=== PATIENT | female | born 1940 | race Caucasian/White ===

== ENCOUNTER 2017-09-23 16:12 | Emergency (ER) | payer BC, OTHER ==
--- NOTE | 2017-09-23 16:37 | EDPHY ---
H & P Time Seen by Provider: 09/23/17 16:24 HPI/ROS: CHIEF COMPLAINT: Left eye is bleeding HISTORY OF PRESENT ILLNESS: Patient had cataract surgery last year in December and then redness surgery in January. Repair of the retina by last week on . Was prescribed eyedrops and then had some left eye irritation and was prescribed prednisolone eye drops by analysis consultant Dr. Soler and saw DrRoland in the office yesterday. Was told to continue the eyedrops. Today had worsening eye irritation and itching and then states she feels like it is bleeding into her throat. Over the last 3 hr she coughed about once an hour and had a little speck of blood each time. REVIEW OF SYSTEMS: Eye: As in HPI ENT: no nose bleeding Cardiac: No chest pain Pulmonary: HPI not short of breath Abdomen: no vomiting, diarrhea, abdominal pain Musculoskeletal: No leg swelling Skin: no bruising Neuro: no headache Constitutional: no fever : no hematuria A comprehensive 10 point review of systems is otherwise negative aside from elements mentioned in the history of present illness. PAST MEDICAL HISTORY: Eye surgery, hypertension, hypothyroid. Social history: Here with her spouse General Appearance: Alert and conversant, cooperative. Eyes: Lateral left subconjunctival hemorrhage, lower lid is erythematous and edematous. Extraocular motion intact and pupils equal and reactive. ENT, Mouth: Normal mucous membranes. No blood in the pharynx, no trismus, no stridor or drooling. Respiratory: Normal respiratory effort, breath sounds equal, lungs are clear to auscultation. Cardiovascular: Regular rate and rhythm. Gastrointestinal: Abdomen is soft and non tender. Neurological: Alert, conversant, ambulatory. Skin: No bruising or petechiae, left lower eyelid as noted above. Musculoskeletal: No peripheral edema. Psychiatric: Not agitated. Emergency Department course/MDM: Call is placed to her music arranger. Discussed with Sharon at 1658. Normal to have bloody tears, she feels the patient's symptoms would be expected following surgery and no further action is required. Continue eyedrops as prescribed by Dr. Soler.. Patient is coughing up likely bloody tears, and I do not think it is likely that she has acute pulmonary infection or pulmonary infarction or embolus, or other ENT bleeding. Smoking Status: Never smoked Constitutional: Initial Vital Signs Temperature (C) 36.6 C 09/23/17 16:20 Heart Rate 82 09/23/17 16:20 Respiratory Rate 16 09/23/17 16:20 Blood Pressure 129/75 H 09/23/17 16:20 O2 Sat (%) 92 09/23/17 16:20 O2 Delivery Mode Room Air Allergies/Adverse Reactions: lanolin Allergy (Severe, Verified 02/08/13 13:57) Rash bacitracin Allergy (Verified 08/03/12 18:13) codeine [Codeine] Allergy (Verified 08/03/12 18:11) neomycin Allergy (Verified 09/23/17 16:19) polymyxin B Allergy (Verified 09/23/17 16:19) ADHESIVES Allergy (Uncoded 08/03/12 18:12) Departure - Departure Disposition: Home, Routine, Self-Care Clinical Impression: Subconjunctival hemorrhage of left eye Condition: Good Instructions: Subconjunctival Hemorrhage (ED) Additional Instructions: Per Dr. Herrera it is normal to have bloody tears after this surgery for a few more days. Referrals: Lyn Carvajal MD [Primary Care Provider] - As per Instructions Cassie Herrera MD [Non Staff Provider (MD)] - As per Instructions
[2017-09-23 17:49] VITALS: BP 106/70
== END 2017-09-23 17:49 | disposition home or self-care (01) ==
DX: H11.32 Conjunctival hemorrhage, left eye (principal); I10 Essential (primary) hypertension

== ENCOUNTER → 2017-12-26 | Outpatient (CLI) | payer BC | LOC: FIMAGING 12:00 | PROVIDERS: ATTEND Family Medicine | DX: N63.20 Unspecified lump in the left breast, unspecified quadrant (principal) ==

== ENCOUNTER → 2017-12-26 | Outpatient (CLI) | payer BC ==
--- NOTE | 2017-12-29 11:07 | CPEEG ---
[f rep st] ELECTROENCEPHALOGRAM DATE OF STUDY: 12/26/2017 INTERPRETATION: Normal EEG during wakefulness and drowsiness. There were no potentially epileptogen ic abnormalities present during the recording. REPORT: This EEG contains 8-9 hertz, low amplitude alpha activity over the posterior head regions. There was no abnormal activation at rest, during photic stimulation or hyperventilation. The patient became intermittently drowsy during the study. There was no abnormal activation during drowsiness o r during times of arousal. /[id number]/MODL
== END ==
LOC: FCPNEURO 07:54
PROVIDERS: ATTEND Physician Assistant Medical
DX: R41.3 Other amnesia (principal)

== ENCOUNTER → 2018-01-21 | Outpatient (CLI) | payer BC ==
[~2018-01-21] MED LIST: GADOBUTROL 10 ML VIAL IVP ONE
== END ==
LOC: FIMAGING 08:02
PROVIDERS: ATTEND Physician Assistant Medical
DX: R41.3 Other amnesia (principal); Z85.820 Personal history of malignant melanoma of skin
CPT/HCPCS: A9585

== ENCOUNTER 2018-04-16 08:34 | Emergency (ER) | payer BC, OTHER ==
[2018-04-16] MEDS ORDERED: NS 1,000 ML IV ONE (08:42)
--- NOTE | 2018-04-16 08:43 | EDPHY ---
H & P Time Seen by Provider: 04/16/18 08:42 HPI/ROS: CHIEF COMPLAINT: Generalized weakness HISTORY OF PRESENT ILLNESS: Patient is a 77-year-old female with a history of dementia, hypothyroidism and chronic pain with narcotic dependence as well as alcohol abuse who woke up this morning and said she was too weak to get out of bed. Her called an ambulance. When the ambulance arrived she told them that she did not have any complaints and did not feel weak. She denies recent fevers or illness. She denies any acute pain. No nausea vomiting or diarrhea. No cough or shortness of breath. is on the way. Her oxygen saturation was 91% on room air for EMS pain. no dysuria. Severity: Moderate Modifying factors: None REVIEW OF SYSTEMS: Constitutional: denies: chills, fever, recent illness, recent injury EENTM: denies: blurred vision, double vision, nose congestion Respiratory: denies: cough, shortness of breath Cardiac: denies: chest pain, irregular heart rate, lightheadedness, palpitations Gastrointestinal/Abdominal: denies: abdominal pain, diarrhea, nausea, vomiting, blood streaked stools Genitourinary: denies: dysuria, frequency, hematuria, pain Musculoskeletal: See HPI Skin: denies: lesions, rash, jaundice, bruising Neurological: denies: headache, numbness, paresthesia, tingling, dizziness Hematologic/Lymphatic: denies: blood clots, easy bleeding, easy bruising Immunologic/allergic: denies: HIV/AIDS, transplant 10 systems reviewed and negative except as noted EXAM: GENERAL: Well-appearing, well-nourished and in no acute distress. HEAD: Atraumatic, normocephalic. EYES: Pupils equal round and reactive to light, extraocular movements intact, sclera anicteric, conjunctiva are normal. ENT: TMs normal, nares patent, oropharynx clear without exudates. Moist mucous membranes. NECK: Normal range of motion, supple without lymphadenopathy or JVD. LUNGS: Breath sounds clear to auscultation bilaterally and equal. No wheezes rales or rhonchi. HEART: Regular rate and rhythm without murmurs, rubs or gallops. ABDOMEN: Soft, nontender, normoactive bowel sounds. No guarding, no rebound. No masses appreciated. BACK: No CVA tenderness, no spinal tenderness, step-offs or deformities EXTREMITIES: Normal range of motion, no pitting or edema. No clubbing or cyanosis. NEUROLOGICAL: Cranial nerves II through XII grossly intact. Normal speech. 5/ 5 strength, normal movement in all extremities but states that she feels too weak to get up and walk., normal sensation, normal reflexes PSYCH: Normal mood, normal affect. SKIN: Warm, dry, normal turgor, no visible rashes or lesions. Source: Patient, EMS Exam Limitations: Clinical condition - Medical/Surgical History Hx Asthma: No Hx Chronic Respiratory Disease: No Hx Diabetes: No Hx Cardiac Disease: Yes Hx Renal Disease: No Hx Cirrhosis: No Hx Alcoholism: No Hx HIV/AIDS: No Hx Splenectomy or Spleen Trauma: No Other PMH: Dementia, HTN, HYPOTHYROID, PE, GERD, chronic pain with narcotic dependence, alcohol abuse. cataract surgery, retina surgery, appendectomy, ankle fusion, right knee surgery - Social History Smoking Status: Never smoked Constitutional: Initial Vital Signs Temperature (C) 36.8 C 04/16/18 08:39 Heart Rate 92 04/16/18 08:39 Blood Pressure 172/78 H 04/16/18 08:39 O2 Sat (%) 94 04/16/18 08:39 O2 Delivery Mode Room Air Allergies/Adverse Reactions: lanolin Allergy (Severe, Verified 04/16/18 12:03) Rash bacitracin Allergy (Verified 04/16/18 12:03) codeine [Codeine] Allergy (Verified 04/16/18 12:03) neomycin Allergy (Verified 04/16/18 12:03) polymyxin B Allergy (Verified 04/16/18 12:03) ADHESIVES Allergy (Uncoded 04/16/18 12:03) Home Medications: Medication Instructions Recorded Aspirin [Aspirin 81mg (*)] 81 mg PO DAILY 04/16/18 Herbals/Supplements -Info Only 1 ea PO DAILY 04/16/18 Levothyroxine [Synthroid 50 mcg 50 mcg PO DAILY06 04/16/18 (*)] Medical Decision Making - Diagnostics EKG Interpretation: An EKG obtained and was read and documented in trace view. Please see trace view for full reading and report. Sinus rhythm, narrow QRS, no acute ischemic changes. ED Course/Re-evaluation: 9:00 a.m. the patient's has arrived. He states that she got out of bed and was acting normally this morning and prepared herself breakfast. They were getting ready for a Neurology appointment at 10:30 a.m.. She is being evaluated for Alzheimer's and recently had an MRI as well as an EEG and has had her thyroid medications adjusted. The follow-up appointment was this morning however around 8:00 a.m. After eating breakfast she stated she felt very weak and could not sit herself up at the breakfast table. She walked over to the couch and was sitting on the couch. The went up to get dressed and when he came back down she had slumped off of the couch onto the ground. He helped her to the couch again but she was unable to stand or walk. No focal weakness. He called EMS who brought her here. She and he both state that she now seems to be back to normal. No reported history of seizures. She her NIH stroke score here 0. 9:50 a.m. the patient's lab work is reassuring. She states that she feels normal. We gave her road test and she ambulated well. Her states that she is at baseline. We discussed options. They would prefer to be discharged and follow up with their Neurology appointment at 10:30 a.m.. They will go directly there. I believe that this is reasonable. EKG was reassuring with no chest pain. We discussed indications for returning. Differential Diagnosis: Partial list of the Differential diagnosis considered include but were not limited to; generalized weakness, dehydration, urinary tract infection, electrolyte abnormality and although unlikely based on the history and physical exam, I also considered CVA, seizure, hemorrhage, tumor, spinal cord injury. I discussed these differential diagnoses and the plan with the patient as well as the usual and expected course. The patient understands that the diagnosis is provisional and that in medicine we are not always correct and that further workup is often warranted. Usual and customary warnings were given. All of the patient's questions were answered. The patient was instructed to return to the emergency department should the symptoms at all worsen or return, otherwise to followup with the physician as we discussed. - Data Points Laboratory Results: Laboratory Results 04/16/18 08:40 04/16/18 08:40 Medications Given: Discontinued Medications Sodium Chloride (Ns) 1,000 mls @ 0 mls/hr IV ONCE ONE; Wide Open PRN Reason: Protocol Stop: 04/16/18 08:43 Last Admin: 04/16/18 08:55 Dose: 1,000 mls Departure - Departure Disposition: Home, Routine, Self-Care Clinical Impression: Generalized weakness Condition: Fair Instructions: Weakness (ED) Referrals: Rafa Caballero PA [Physician Deck Builder] - As per Instructions
[2018-04-16 08:56] LABS: PLATELET COUNT 242 10^3/uL (150-400)
--- NOTE | 2018-04-16 08:57 | CPEKG ---
Test Reason : OPEN Blood Pressure : / mmHG Vent. Rate : 072 BPM Atrial Rate : 070 BPM P-R Int : 173 ms QRS Dur : 096 ms QT Int : 410 ms P-R-T Axes : 031 011 015 degrees QTc Int : 449 ms Sinus rhythm Low voltage, extremity leads Confirmed by Rodney Romano ([id number]) on 04/16/2018 8:56:37 AM Referred By: Confirmed By:Rodney Romano
[2018-04-16 10:12] VITALS: BP 156/89
--- NOTE | 2018-04-16 16:32 | GHP ---
DATE OF ADMISSION: 04/16/2018 CHIEF COMPLAINT: Syncope. HISTORY OF PRESENT ILLNESS: A 77-year-old female who was seen at 8:30 this morning in the ED for gen eralized weakness and syncopal episode. History was obtained from her . The patient was in h er normal state of health last night and this morning. She was in a recliner and then went to the co [facility]. Her then found her on the floor. She was awake, but mumbling. No bowel or bladder inc ontinence. They called 911, and she was brought here to the ER. Initial assessment was unremarkable , with normal labs. Negative U-tox and UA. EKG without ischemia. She was discharged home at 10:30, to go to a scheduled neurology appointment. At her neurology appointment, she had another episode of presyncope. She said she felt like she was going to pass out, and her had to hold her up. He does not think she blacked out there. Dur ing my interview, patient denies any prodromal chest pain, shortness of breath, dizziness, or lighthe adedness. No recent fevers, chills, or sweats. No nausea, vomiting, or diarrhea. On rhythm strip b y EMS, they saw some PVCs and a heart rate in the 70s. Per , has a limited diet, preferring easy soft drinks, frozen yogurt, and tuna salad. REVIEW OF SYSTEMS: I completed a 10-point review of systems, negative, except as noted in HPI. PAST MEDICAL HISTORY: 1. Dementia: Being further evaluated for Alzheimer's by Dr. Caballero, neurologist. 2. Hypothyroidism. 3. Chronic pain in the past, not on opioids any longer. 4. Prior alcohol abuse, none in 5 years. 5. Hypertension. 6. History of pulmonary embolism, June 2013. 7. History of left leg deep vein thrombosis, 2013. 8. Gastroesophageal reflux disease. PAST SURGICAL HISTORY: Cataract, retina, appendectomy, ankle fusion, right knee. SOCIAL HISTORY: Lives in [place] with her , 40 years. No alcohol in 5 years. Never any cigarettes or illicits. FAMILY HISTORY: No strokes or blood clots. HOME MEDICATIONS: 1. Synthroid increased to 50 mcg in March 2018. 2. Red yeast rice. 3. Krill oil. 4. B12. 5. Aspirin. ALLERGIES: Lanolin, bacitracin, codeine, neomycin, polymyxin, adhesives. PHYSICAL EXAMINATION: VITAL SIGNS: Temperature 36.3. Blood pressure is 160/84. Heart rates in the 70s, respirations 16-20, 91% on room air. GENERAL: She is well appearing, sitting up in bed, in no acute distress. HEENT: PERRLA. Mildly dry mucous membranes. Oropharynx clear. CV: Regular rate and rhythm. No murmurs, gallops, or rubs. LUNGS: Clear. No wheezing or crackles. ABDOMEN: Soft, nontender, nondistended. Positive bowel sounds. : No suprapubic or CVA tenderness. MUSCULOSKEL ETAL: 5/5 upper and lower extremity strength. NEURO: 2 through 12 intact. Normal sensation to freddie ch. Normal rsynen-xk-anfa testing. No facial droop. PSYCH: She is alert and oriented x3. LABORATORY DATA: WBC 7, hemoglobin 13, hematocrit 42, platelets 242. D-dimer is pending. Sodium 14 0, potassium 4.5, chloride 24. Creatinine is 1, which is baseline. Glucose 141, magnesium 2, calciu m 9.7, troponin 0.01. TSH is 5.4. T4 is 1.29. Chest x-ray is personally reviewed by me, mild hazin ess in bilateral bases. No opacity. EKG personally reviewed, low voltage, T-wave flattening III, aVF, similar to prior. ASSESSMENT AND PLAN: 1. Syncope: Unclear etiology at this time. Initial troponin, EKG negative for ischemia. No eviden ce of infection, with normal white count, afebrile. Normal UA. X-ray without pneumonia. May be deh ydrated. Has a limited diet, per . Will hydrate gently. Does have a history of PE, so will check a D-dimer positive. Will do a CT scan. Check an echocardiogram. Monitor on telemetry. 2. Hypothyroidism. Resume Synthroid. 3. Dementia. She is followed by Dr. Caballero at [facility]. MRI, January 21, demonstrated a tiny focus of hemosiderin along the cortex of the right frontal lobe and right anterior parietal lobe s. She performs her own ADLs. She does not cook, but does use the microwave. Will have PT/OT evalu ate. 4. Diet, regular. 5. Deep vein thrombosis prophylaxis, Lovenox. DISPOSITION: Observation admission for telemetry, echocardiogram, possible CT scan. /[id number]/MODL
== END 2018-04-16 10:10 | disposition home or self-care (01) ==
LOC: EDUNIT#
DX: R53.1 Weakness (principal); E86.9 Volume depletion, unspecified; F03.90 Unspecified dementia, unspecified severity, without behavioral disturbance, psychotic disturbance, mood disturbance, and anxiety; E03.9 Hypothyroidism, unspecified; G89.29 Other chronic pain; I10 Essential (primary) hypertension; K21.9 Gastro-esophageal reflux disease without esophagitis; F11.20 Opioid dependence, uncomplicated; F10.10 Alcohol abuse, uncomplicated; Z90.49 Acquired absence of other specified parts of digestive tract; Z86.711 Personal history of pulmonary embolism
CPT/HCPCS: 80305; G0480

== ENCOUNTER 2018-04-16 11:50 | Inpatient (IN) | payer OTHER ==
--- NOTE | 2018-04-16 13:07 | EDPHY ---
H & P Stated Complaint: syncope Time Seen by Provider: 04/16/18 12:54 HPI/ROS: CHIEF COMPLAINT: Syncope HISTORY OF PRESENT ILLNESS: 77-year-old female who I saw a few hours ago. She was here in the ER after an episode of generalized weakness in her home. We did not find any obvious cause and her symptoms had improved. She was eager to get to her Neurology appointment where she has been worked up for Alzheimer's. She recently had an MRI and EEG, they were unremarkable. While being evaluated by the neurologist she had several more of these episodes of generalized weakness and possibly syncope. Paramedics were called. They found some PVCs and concerned about borderline bradycardia . The rhythm strip they brought to us is a rate of about 70. The patient currently is not voicing any complaints. Severity: Moderate Modifying factors: None REVIEW OF SYSTEMS: Constitutional: denies: chills, fever, recent illness, recent injury EENTM: denies: blurred vision, double vision, nose congestion Respiratory: denies: cough, shortness of breath Cardiac: denies: chest pain, irregular heart rate, lightheadedness, palpitations Gastrointestinal/Abdominal: denies: abdominal pain, diarrhea, nausea, vomiting, blood streaked stools Genitourinary: denies: dysuria, frequency, hematuria, pain Musculoskeletal: denies: joint pain, muscle pain Skin: denies: lesions, rash, jaundice, bruising Neurological: denies: headache, numbness, paresthesia, tingling, dizziness, weakness Hematologic/Lymphatic: denies: blood clots, easy bleeding, easy bruising Immunologic/allergic: denies: HIV/AIDS, transplant 10 systems reviewed and negative except as noted EXAM: GENERAL: Well-appearing, confused, well-nourished and in no acute distress. HEAD: Atraumatic, normocephalic. EYES: Pupils equal round and reactive to light, extraocular movements intact, sclera anicteric, conjunctiva are normal. ENT: TMs normal, nares patent, oropharynx clear without exudates. Moist mucous membranes. NECK: Normal range of motion, supple without lymphadenopathy or JVD. LUNGS: Breath sounds clear to auscultation bilaterally and equal. No wheezes rales or rhonchi. HEART: Regular rate and rhythm without murmurs, rubs or gallops. ABDOMEN: Soft, nontender, normoactive bowel sounds. No guarding, no rebound. No masses appreciated. BACK: No CVA tenderness, no spinal tenderness, step-offs or deformities EXTREMITIES: Normal range of motion, no pitting or edema. No clubbing or cyanosis. NEUROLOGICAL: Cranial nerves II through XII grossly intact. Normal speech, normal gait. 5/5 strength, normal movement in all extremities, normal sensation , normal reflexes PSYCH: Normal mood, normal affect. SKIN: Warm, dry, normal turgor, no visible rashes or lesions. Source: Patient - Personal History Current Tetanus/Diphtheria Vaccine: Unsure Current Tetanus Diphtheria and Acellular Pertussis (TDAP): Unsure - Medical/Surgical History Hx Asthma: No Hx Chronic Respiratory Disease: No Hx Diabetes: No Hx Cardiac Disease: No Hx Renal Disease: No Hx Cirrhosis: No Hx Alcoholism: Yes Hx HIV/AIDS: No Hx Splenectomy or Spleen Trauma: No Other PMH: Dementia, HTN, HYPOTHYROID, PE, GERD, chronic pain with narcotic dependence, alcohol abuse. cataract surgery, retina surgery, appendectomy, ankle fusion, right knee surgery - Family History Significant Family History: No pertinent family hx - Social History Smoking Status: Never smoked Alcohol Use: Sober Drug Use: None Constitutional: Initial Vital Signs Temperature (C) 37.1 C 04/16/18 11:50 Heart Rate 68 04/16/18 11:50 Respiratory Rate 18 04/16/18 11:50 Blood Pressure 178/91 H 04/16/18 11:50 O2 Sat (%) 90 L 04/16/18 11:50 O2 Delivery Mode Room Air Allergies/Adverse Reactions: lanolin Allergy (Severe, Verified 04/16/18 12:03) Rash bacitracin Allergy (Verified 04/16/18 12:03) codeine [Codeine] Allergy (Verified 04/16/18 12:03) neomycin Allergy (Verified 04/16/18 12:03) polymyxin B Allergy (Verified 04/16/18 12:03) ADHESIVES Allergy (Uncoded 04/16/18 12:03) Home Medications: Medication Instructions Recorded Aspirin [Aspirin 81mg (*)] 81 mg PO DAILY 04/16/18 Herbals/Supplements -Info Only 1 ea PO DAILY 04/16/18 Levothyroxine [Synthroid 50 mcg 50 mcg PO DAILY06 04/16/18 (*)] Medical Decision Making - Diagnostics EKG Interpretation: An EKG obtained and was read and documented in trace view. Please see trace view for full reading and report. Sinus rhythm, no acute ischemic changes or arrhythmia ED Course/Re-evaluation: The patient is having repeated episodes of generalized weakness/presyncope. No arrhythmias seen here on EKG are monitoring. Paramedics EKG is not very concerning. Will admit for continued observation and workup. 1:15 p.m. I discussed the case with Kathrine who accepted for Dr. Edwards. Differential Diagnosis: Partial list of the Differential diagnosis considered include but were not limited to; syncope, presyncope, generalized weakness, CVA, arrhythmia and although unlikely based on the history and physical exam, I also considered sepsis. - Data Points Medications Given: Enoxaparin Sodium (Lovenox) 40 mg SC DAILY NICK Stop: 10/14/18 08:59 Last Admin: 04/17/18 08:44 Dose: 40 mg Levothyroxine Sodium (Synthroid) 50 mcg PO DAILY06 NICK Stop: 10/14/18 05:59 Last Admin: 04/17/18 07:35 Dose: 50 mcg Discontinued Medications Sodium Chloride (Ns) 1,000 mls @ 100 mls/hr IV CONT NICK Stop: 04/17/18 01:59 Last Admin: 04/16/18 16:00 Dose: 1,000 mls Point of Care Test Results: Chemistry 04/16/18 11:59 POC Troponin I 0.01 ng/mL ng/mL (0.00-0.08) Departure - Departure Disposition: [facility] Inpatient Acute Clinical Impression: Syncope Qualifiers: Syncope type: unspecified Qualified Code(s): R55 - Syncope and collapse Condition: Fair
--- NOTE | 2018-04-16 13:11 | CPEKG ---
Test Reason : OPEN Blood Pressure : / mmHG Vent. Rate : 066 BPM Atrial Rate : 066 BPM P-R Int : 156 ms QRS Dur : 087 ms QT Int : 429 ms P-R-T Axes : 006 -26 010 degrees QTc Int : 450 ms Sinus rhythm Borderline left axis deviation Low voltage, extremity leads Confirmed by Rodney Romano ([id number]) on 04/16/2018 1:11:00 PM Referred By: Confirmed By:Rodney Romano
[2018-04-16] MEDS ORDERED: ONDANSETRON 4 MG/2 ML VIAL IVP PRN (13:33)
[2018-04-16] MEDS ORDERED: ACETAMINOPHEN 325 MG TAB PO PRN (13:33)
[2018-04-16] MEDS ORDERED: ONDANSETRON DISINTEGRATING 4 MG TAB PO PRN (13:33)
[2018-04-16] MEDS ORDERED: NS 1,000 ML IV SCH (16:00)
[2018-04-16] MEDS ORDERED: IOPAMIDOL (ISOVUE 370) 100 ML BTL IV ONE (16:41)
[2018-04-17] MEDS: LEVOTHYROXINE 50 MCG TAB PO SCH (07:35)
[2018-04-17] MEDS: ENOXAPARIN 40 MG/0.4 ML SYR SC SCH (08:44)
--- NOTE | 2018-04-17 09:56 | ASMTCMCOM ---
CM Note CM Note Notes: Pt's chart reviewed for d/c planning. Pt is a 77 y/o female who initially came to the ED due to generalized weakness. She felt better while in the ED and was d/sarah and later went to a neurology appt to be evaluated for alzheimers. While in the waiting room there she had several episodes of generalized weakness and possibly near syncope. Paramendics came and found some PVCs and a borderline brachycardia; she was brought back to the ED. Pt has dementia and a hx of alcohol abuse. She lives with her and is retired. CM to follow. D/C Plan: TBD Date Signed: 04/17/2018 09:55 AM Electronically Signed By:Brittani Macias
--- NOTE | 2018-04-17 15:03 | CPEKG ---
Test Reason : OPEN Blood Pressure : / mmHG Vent. Rate : 101 BPM Atrial Rate : 093 BPM P-R Int : 188 ms QRS Dur : 091 ms QT Int : 356 ms P-R-T Axes : 075 011 015 degrees QTc Int : 462 ms Sinus tachycardia Paired ventricular premature complexes Low voltage, extremity leads Confirmed by Mahin Beard ([id number]) on 04/17/2018 3:03:08 PM Referred By: Confirmed By:Mahin Beard
--- NOTE | 2018-04-17 15:14 | HOSPPROG ---
Hospitalist Progress Note Assessment/Plan: #Syncope: LOC once yesterday. 2nd episode unclear if had LOC. No PE on CTA. Troponin negative x 2 -afebrile, no e/o infection -EKG today reviewed with Dr. Beard: brief run a fib -echo pending -possible tachy-ying syndrome; may need pacer?? -telemetry overnight to gather more data #Brief atrial fibrillation -CHADsVasc 3 (age, female, HTN) -will review with cards and will likely need AC #Accelerated HTN: not on outpatient meds -start low-dose Norvasc today #Concern for Alzheimer's: still does own ADLs, uses microwave, does not cook -PT/OT #Hypothyroidism -LT4 recently adjusted to 50mcg 04/07/18 #Diet: regular #DVT ppx: Lovenox #Disp: inpatient admission for telemetry, Cardiology evaluation Called and explained plan and he agrees. Subjective: sitting in chair "feel like going to pass out" Objective: Vital Signs Temp Pulse Resp BP Pulse Ox 36.6 C 66 20 168/105 H 94 04/17/18 11:06 04/17/18 13:40 04/17/18 11:06 04/17/18 13:40 04/17/18 11:06 04/16/18 04/17/18 04/18/18 05:59 05:59 05:59 Intake Total 300 Output Total 1125 100 Balance -825 -100 - Time Spent With Patient Time Spent with Patient: greater than 35 minutes Time Spent with Patient: Greater than 35 minutes spent on this patients care, greater than 50% of time spent counseling, educating, and coordinating care regarding the above mentioned plan. - Physical Exam Constitutional: no apparent distress Eyes: PERRL Ears, Nose, Mouth, Throat: moist mucous membranes Cardiovascular: other (RRR with occasional extra beat) Respiratory: no respiratory distress Gastrointestinal: normoactive bowel sounds Genitourinary: no bladder fullness Skin: warm Psychiatric: poor insight, poor memory ICD10 Worksheet Patient Problems: Problems Problem Status Onset Syncope Acute Pulmonary embolism Acute
--- NOTE | 2018-04-17 17:45 | PDMN ---
Medical Necessity Medical necessity: Change to inpt as of 04/17/18 @ 16:17. Pt meets inpt criteria per MD order and MCG M-340, syncope. 77 y/o admitted w/syncope. Upgraded to inpt for persistent syncopal episodes and further cardiology eval, run of afib, possible tachy-ying syndrome. Est LOS>2MN for ongoing eval/management of above.
--- NOTE | 2018-04-17 18:26 | ECHO ---
[email or web address] [address] [address] Main: [phone] Fax: Transthoracic Echocardiogram Name: ANJEL LIZ MR#: [id number] Study Date: 04/17/2018 Study Time: 10:06 AM Date of : 1940 Age: 77 year(s) Height: 170.2 cm (67 in.) Weight: 70.31 kg (155 lb.) BSA: 1.81 m2 Gender: Female Examination: Echo Indication: unexplained syncope, eval for VHD Image Quality: Adequate Contrast: Requested by: Diana Edwards BP: / Heart Rate: Rhythm: Indication: unexplained syncope, eval for VHD Procedure Staff Worship Director: Diana Coto RUST Reading Physician: Mahin Beard MD Requesting Provider: Conclusions: Normal size left ventricle. Mild concentric LV hypertrophy. Normal global systolic LV function. EF is 64 %. No regional wall motion abnormality. Normal diastolic LV function. Normal size right ventricle. The mitral valve is normal in appearance and function. Mild mitral valve regurgitation is present. The aortic valve is tri-leaflet. There is no significant aortic valve regurgitation. The tricuspid valve is normal in appearance and function. Mild tricuspid regurgitation is present. The pulmonary artery pressure is normal. Right ventricular systolic pressure measures 34mmHg. There is no pulmonic regurgitation seen. Normal size ascending aorta measuring 3.3 cm. Echogenic structure seen in IVC. No pericardial effusion. Measurements: Chambers Valvular Assessment AV/MV Valvular Assessment TV/PV Normal Normal Normal Name Value Range Name Value Range Name Value Range Ao Rossy (2D): 3.1 cm (1.4 cm-2.6 AV Vmax: 1.83 m/s (1 m/s-1.7 TR Vmax: 2.69 mm/s ( - ) cm) m/s) TR PGmax: 29 mmHg ( - ) IVSd (2D): 1.3 cm (0.6 cm-1.1 AV maxP mmHg ( - ) syst. PAP: 34 mmHg ( - ) cm) AV meanP mmHg ( - ) PV Vmax: 1.33 m/s (0.6 m/s-0.9 LVDd (2D): 4.9 cm (3.9 cm-5.3 SCOOTER (VTI): 2.0 cm ( - ) m/s) cm) Patient: ANJEL LIZ Study Date: 04/17/2018 Page 1 of 2 10:06 AM LVDs (2D): 3.2 cm (2.1 cm-4 MV E Vmax: 0.60 m/s ( - ) PV PGmax: 7 mmHg ( - ) cm) MV A Vmax: 0.69 m/s ( - ) LVPWd (2D): 1.2 cm ( - ) MV E/A: 0.87 ( - ) LVOTd 2.0 cm 2.0 cm mm MV PHT: 0.077 s ( - ) LVEF (BP): 64 % (>=55 %) MVA (PHT): 2.9 s ( - ) RVDd(2D): 3.7 cm (1.9 cm-3.8 cmmm) Continued Measurements: Chambers Valvular Assessment AV/MV Valvular Assessment TV/PV Name Value Name Value Name Value LADs: 3.2 cm MV DecTime: 261 m/s CVP (est.): 5 mmHg LADs Lon.6 cm MV E' Septal: 0.10 m/s LA Area: 20.3 cm2 MV E/E' Septal: 6.20 LA Volume: 56 ml MV E/E' Lateral: 7.10 LA Volume Index: 30.9 ml/m2 Additional Vessels Name Value Ao Ascendin.3 cm Inferior Vena Cava: 1.9 cm Findings: Left Ventricle: Normal size left ventricle. Mild concentric LV hypertrophy. Normal global systolic LV function. EF is 64 %. No regional wall motion abnormality. Normal diastolic LV function. Right Ventricle: Normal size right ventricle. Normal RV function. Left Atrium: The left atrium is normal in size. Right Atrium: The right atrium is normal in size. Mitral Valve: The mitral valve is normal in appearance and function. Mild mitral valve regurgitation is present. No mitral stenosis is present. Aortic Valve: The aortic valve is tri-leaflet. There is no significant aortic valve regurgitation. No aortic valve stenosis is present. Tricuspid Valve: The tricuspid valve is normal in appearance and function. Mild tricuspid regurgitation is present. The pulmonary artery pressure is normal. Right ventricular systolic pressure measures 34mmHg. Pulmonic Valve: The pulmonic valve is normal in appearance and function. There is no pulmonic regurgitation seen. Aorta: The aorta is normal. Normal size aortic root measuring 3.1 cm. Normal size ascending aorta measuring 3.3 cm. IVC: The IVC is normal sized. Echogenic structure seen in IVC. Pericardium: No pericardial effusion. There is pericardial fat. No pleural effusion. (No Signature Object) Patient: ANJEL LIZ Study Date: 04/17/2018 Page 2 of 2 10:06 AM [id number]
[2018-04-17] MEDS ORDERED: HALOPERIDOL LACT 5 MG/ML INJ IVP ONE (19:15)
[2018-04-17] MEDS ORDERED: HALOPERIDOL LACT 5 MG/ML INJ ONE (23:37)
[2018-04-18] MEDS: LEVOTHYROXINE 50 MCG TAB PO SCH (05:50)
[2018-04-18] MEDS ORDERED: CYANO/VITAMIN B12 1000 MCG TAB PO SCH (09:00)
[2018-04-18] MEDS ORDERED: OMEGA-3 FATTY ACIDS 1,000 MG CAP PO SCH (09:00)
[2018-04-18] MEDS ORDERED: CHOLECALCIFEROL VIT D3 2,000 UNITS TAB/CAP PO SCH (09:00)
--- NOTE | 2018-04-18 09:06 | HOSPPROG ---
Hospitalist Progress Note Assessment/Plan: #Syncope: LOC once yesterday. 2nd episode unclear if had LOC. No PE on CTA. Troponin negative x 2 -afebrile, no e/o infection -EKG today reviewed with Dr. Beard: brief run a fib -Echo with no valvular dz, no WMA -possible tachy-ying syndrome; but no e/o bradycardia -FU [facility] next week for 30 days monitor #Brief atrial fibrillation -CHADsVasc 4. Discussed with Dr. Beard. Both agree high-risk for bleeding if falls on full AC. Given short-run a fib (9 beats). Will DC on ASA #Concern for Alzheimer's: still does own ADLs, uses microwave, does not cook -PT/OT #Hypothyroidism -LT4 recently adjusted to 50mcg 04/07/18 #Goals: agreeable for outpatient Palliative consult #Diet: regular #DVT ppx: Lovenox DC today Subjective: no acute events overnight Objective: Vital Signs Temp Pulse Resp BP Pulse Ox 36.8 C 73 13 135/96 H 93 04/18/18 08:00 04/18/18 08:00 04/18/18 08:00 04/18/18 08:00 04/18/18 08:00 04/17/18 04/18/18 04/19/18 05:59 05:59 05:59 Output Total 300 Balance -300 - Time Spent With Patient Time Spent with Patient: greater than 35 minutes Time Spent with Patient: Greater than 35 minutes spent on this patients care, greater than 50% of time spent counseling, educating, and coordinating care regarding the above mentioned plan. - Physical Exam Constitutional: no apparent distress Eyes: PERRL Ears, Nose, Mouth, Throat: moist mucous membranes Cardiovascular: regular rate and rhythym Respiratory: no respiratory distress Gastrointestinal: normoactive bowel sounds Genitourinary: no bladder fullness Skin: warm Musculoskeletal: full muscle strength Neurologic: AAOx3, CN II-XII Intact Psychiatric: encephalopathic ICD10 Worksheet Patient Problems: Problems Problem Status Onset Syncope Acute Pulmonary embolism Acute
--- NOTE | 2018-04-18 09:38 | PDCARCONS ---
Cardiology Consult Reason for Consult: Syncope Chief Complaint: weakness and feeling lightheaded Requesting Physician: Hospitalist team History of Present Illness: Patient is a 77 y/o female with history of HTN, GERD, hypothyroidism, pulmonary embolism (from chart review), and dementia (currently unspecified), but no history of HLP, CAD, or DM, who presented to [facility] ER after syncopal event. Patient was seen in the ER initially for weakness, and there was an appointment with neurology pending later in the day. The patient's work up in the ER in the morning was unremarkable, and the patient then proceeded to the neurology appointment. While at this appointment, the patient had a second event (heart rates were reportedly note to be in the 70's from documentation reviewed). The patient then came back to the ER again, and was admitted. No cardiovascular complaints of chest pains or pressure were voiced. No PND or orthopnea. Weakness and fatigue have both been noted. Syncope has been noted (and witnessed) several times. Echocardiography with normal systolic function noted , and only mild mitral and tricuspid regurgitation. There was an echodensity ( ? thrombus) in the IVC. D-dimer was elevated, and CT scan to rule out PE was performed (and did not reveal emboli). Dementia appears to be moderate to severe - she is not aware of where she is, where she lives (specifically), or what medications she takes. No reports of fevers or chills. Remainder of 12 point review of systems is unremarkable showed up this morning and we had a discussion about the patient's dementia degree and the assessment/plans listed below History Information - Allergies/Home Medication List Allergies/Adverse Reactions: lanolin Allergy (Severe, Verified 04/16/18 12:03) Rash bacitracin Allergy (Verified 04/16/18 12:03) codeine [Codeine] Allergy (Verified 04/16/18 12:03) neomycin Allergy (Verified 04/16/18 12:03) polymyxin B Allergy (Verified 04/16/18 12:03) ADHESIVES Allergy (Uncoded 04/16/18 12:03) Home Medications: Aspirin [Aspirin 81mg (*)] 81 mg PO DAILY 04/16/18 [Last Taken 04/15/18] Herbals/Supplements -Info Only 1 ea PO DAILY 04/16/18 [Last Taken 04/09/18] Levothyroxine [Synthroid 50 mcg (*)] 50 mcg PO DAILY06 04/16/18 [Last Taken 10/27] Cholecalciferol Vit D3 [Vitamin D3 2000 units tab (OTC)] 2,000 units PO DAILY [Last Taken Unknown] Cyanocobalamin [Vitamin B12 (*)] 500 mcg PO DAILY 04/17/18 [Last Taken Unknown] [place]-3 Fatty Acids [Fish Oil 1000 mg (*)] 1,000 mg PO DAILY 04/17/18 [Last Taken Unknown] I have personally reviewed and updated: family history, medical history, social history, surgical history Past Medical History: - Past Medical History atrial fibrillation, dementia, DVT, GERD, hypertension, pulmonary embolism - Surgical History Reports: no pertinent surgical hx - Family History Positive for: non-pertinent - Social History Smoking Status: Never smoked Alcohol Use: Sober Drug Use: None Cardiac History - Cardiac History Cardiac Risk Factors: hypertension (>140/90), age > 65 Timing/Duration: Days Severity: moderate Severity Scale: 5 Activities at Onset: activity Modifying Factors: improves with: lying down Associated Symptoms: syncope, weakness Physical Exam Physical Exam: Temp Pulse Resp BP Pulse Ox 36.8 C 73 13 135/96 H 93 04/18/18 08:00 04/18/18 08:00 04/18/18 08:00 04/18/18 08:00 04/18/18 08:00 Constitutional: no apparent distress, appears nourished, not in pain Eyes: PERRL, EOMI Ears, Nose, Mouth, Throat: moist mucous membranes, ears appear normal Cardiovascular: regular rate and rhythym, pulses symmetric bilaterally, No systolic murmur, No JVD, No edema Peripheral Pulses: 2+: dorsalis-pedis (R), dorsalis-pedis (L) Respiratory: no respiratory distress, no rales or rhonchi, clear to auscultation Gastrointestinal: normoactive bowel sounds Skin: warm Musculoskeletal: full muscle strength, no muscle tenderness Neurologic: AAOx3, sensation intact bilaterally, CN II-XII Intact Psychiatric: not anxious, poor insight, poor judgement, poor memory Lab and Imaging D-Dimer 1.44 ug/mLFEU (0.00-0.50) H 04/16/18 12:00 Magnesium 2.0 mg/dL (1.6-2.3) 04/16/18 14:00 POC Troponin I 0.01 ng/mL (0.00-0.08) 04/16/18 11:59 Troponin I < 0.012 ng/mL (0.000-0.034) 04/16/18 16:00 Urine Color YELLOW 04/16/18 23:24 Urine Appearance CLEAR 04/16/18 23:24 Urine pH 6.0 (5.0-7.5) 04/16/18 23:24 Ur Specific [place] > 1.035 (1.002-1.030) H 04/16/18 23:24 Urine Protein NEGATIVE (NEGATIVE) 04/16/18 23:24 Urine Ketones NEGATIVE (NEGATIVE) 04/16/18 23:24 Urine Blood 2+ (NEGATIVE) H 04/16/18 23:24 Urine Nitrate NEGATIVE (NEGATIVE) 04/16/18 23:24 Urine Bilirubin NEGATIVE (NEGATIVE) 04/16/18 23:24 Urine Urobilinogen NEGATIVE EU (0.2-1.0) 04/16/18 23:24 Ur Leukocyte Esterase NEGATIVE (NEGATIVE) 04/16/18 23:24 Urine RBC 5-10 /hpf (0-3) H 04/16/18 23:24 Urine WBC 3-5 /hpf (0-3) H 04/16/18 23:24 Ur Epithelial Cells TRACE /lpf (NONE-1+) 04/16/18 23:24 Urine Mucus TRACE /lpf (NONE-1+) 04/16/18 23:24 Urine Glucose NEGATIVE (NEGATIVE) 04/16/18 23:24 Visualized and Interpreted Chest x-ray results: Yes Chest X-ray Interpretation: no infiltrate, other (bronchitis was suspected) EKG Interpretation: Positive for: normal sinsus rhythm, other (len of atrial fibrillation was also noted on the ECG) Telemetry: normal sinus rhythm with brief runs of what appear to be pAF Echocardiogram: normal LVEF and no significant valve pathology A/P Assessment: Patient is a 77 y/o female with history of GERD, PE/DVT (2013), dementia ( unspecified, but mod/severe), and pAF (newly noted, on lovenox with [id number] score of 4 for age, sex, and HTN history), but no CAD, DM, or HLP, who presents to [facility] after several episodes of syncope. No arrhythmia was captured with the events to determine an etiology, but on telemetry, she has had several bouts of atrial fibrillation. No bradyarrhythmias have been captured on telemetry to date. In speaking with the patient's , ongoing work with neurology for the patient's dementia. Brief discussion about PPM, but a lack of data to justify this procedure to date. Plan: Recommendations for patient to be ambulated in the halls, on monitor, to determine if she has tachy/ying syndrome. While in the room, speaking with the patient and , she had a brief run of what appeared to be pAF (4-5 beats) without symptoms. Cardiology would recommend the patient be on anticoagulation given (a) [id number] score of 4 and (b) history of DVT/PE - HOWEVER, there are concerns about the syncope and falls that have recently been noted. On echo, in the IVC, there was an echodensity noted of uncertain significance. Cardiology would recommend that we start the patient on low dose ASA alone - aware that this does not cover the CVA risk, but it is safe at this point in time. Would have her seen in the outpatient setting early next week and consider [employer] placement (30 day external monitor). More discussion about yard brakeman management plans.
[2018-04-18] MEDS: ENOXAPARIN 40 MG/0.4 ML SYR SC SCH (10:43)
[2018-04-18 11:15] VITALS: BP 128/80
--- NOTE | 2018-04-18 11:57 | PDIAF ---
- Diagnosis Diagnosis: Syncope Code Status: Full Code - Medication Management Discharge Medications: electronically signed and located in the Home Medication List. - Orders Services needed: Physical Therapy Diet Recommendation: no restrictions on diet Diet Texture: Regular Texture Diet Additional Instructions: 1. Make appointment with Cardiology for 30-day monitor 2. Palliative Care will contact - Follow Up Care Current Providers and Referrals: Myra Fregoso MD [Primary Care Provider] - As per Instructions Mahin Beard MD [Medical Doctor] - follow up in 1 week (Needs 30-day Holter monitor )
--- NOTE | 2018-04-18 13:07 | ASMTLACE ---
FL[place] Length of stay for Answers: 2 days current admission Acuity / Level of Answers: Yes Care: Did the patient have an inpatient admission? Comorbidities - select Answers: Dementia all that apply Opioid dependence / Chronic pain Other Notes: HTN; Hypothyroid; PE # of Emergency department Answers: 1-2 visits in the last 6 months Social determinants Answers: History of substance abuse (ETOH, street drugs, prescription drugs, etc.) Score: 17 Date Signed: 04/18/2018 01:06 PM Electronically Signed By:Tiffany Morales
--- NOTE | 2018-04-18 13:33 | GDS ---
DISCHARGE DIAGNOSES: Hypertension, gastroesophageal reflux disease, hypothyroidism, prior pulmonary embolism, unspecified dementia, syncope, new onset atrial fibrillation. CONSULTATIONS: Cardiology. HISTORY OF PRESENT ILLNESS: A 77-year-old female with unspecified dementia, hypertension, hypothyroi dism brought in by EMS for syncope. Her history was obtained from her , who was at bedside. The patient was in her normal state of health the night prior to admission. That morning, she was in a recliner and then went to the couch, and her found her on the floor, slumped over. She wa s awake, but mumbling. No bowel or bladder incontinence. They called 911, and she was brought to [facility] ER. Initial assessment was unremarkable, with normal labs, negative U-tox and UA. EKG was without ischemia. She was discharged home for her scheduled neurology appointment. At her neurology appointment, she had another episode of presyncope. She said she felt like she was going to pass out, and her had her hold her up. It was unclear if she truly had loss of cons ciousness. During my interview, patient denied prodromal chest pain, shortness of breath, dizziness, or lightheadedness. No recent fever, chills, or sweats. Per , she has a limited diet, prefe rring Izze soft drinks, frozen yogurt, and tuna salad. HOSPITAL COURSE BY PROBLEM: 1. Syncope: No evidence of infection. Ischemic evaluation was negative. CTA was negative for pulm onary embolism. She complained of presyncopal symptoms here, and EKG was obtained. Demonstrated a s hort run of atrial fibrillation of [address] Beard evaluated. Concern is possible tachy-ying s yndrome. However, she has had no evidence of bradycardia here. She has a [id number] score of 4. Given her dementia and high risk for falls, he and I are in agreeance of anticoagulation with only an aspirin. She should make an appointment on Friday with Cardiology for a 30-day Holter monitor. 2. History of DVT, negative scan. 3. IVC echodensity: This is of uncertain significance. At this time, there is no further evaluatio n per Cardiology. 4. Advanced dementia: She is being followed by outpatient neurology. I had a long conversation wit h as far as goals and aggressive treatments. He is in agreement of more quality and comfort. I will have outpatient palliative care consulted. She needs 24/ care at home. Case Management is meeting with the for possible day programs or memory unit. 5. Hypothyroidism: Synthroid was just recently adjusted by her PCP. 6. Hypertension, not currently on blood pressure medications. DISPOSITION: Patient is stable for discharge home with her , home care, PT. FOLLOWUP: 1. Cardiology for 30-day Holter monitor. 2. Outpatient palliative care referral. PHYSICAL EXAMINATION: VITAL SIGNS: Today, temperature 36.7, blood pressure 128/80, heart rate in th e 60s, respirations 14, 93 on room air. GENERAL: She is well appearing, sitting up in bed, in no ac [place] distress. HEENT: PERRLA. Moist mucous membranes. CV: Regular rate and rhythm. LUNGS: Clear . ABDOMEN: Soft, nontender. : No Dewitt. MUSCULOSKELETAL: 5/5 upper and lower extremity strengt h. NEURO: 2 through 12 intact. PSYCH: She is alert but poor insight, encephalopathic. Time spent on discharge: Greater than 45 minutes at bedside with , counseling on palliative c are, goals of care, discharge plan. Also discussed the case with Dr. Beard. /[id number]/MODL
--- NOTE | 2018-04-18 14:48 | ASMTDCNOTE ---
Case Management Discharge Discharge Order Complete? Answers: Yes Patient to Obtain Answers: via Family Medications Transportation Arranged Answers: Family/Friends Transport will Pick (Date 04/18/2018 12:00 PM & Time) Faxed Final Orders Answers: Yes Agency/Facility Transfer Answers: Yes Report Printed & Faxed to Receiving Agency Family Notified Answers: Yes Notes: in the room Discharge Comments Notes: Pt to discharge home with and [facility] therapies starting Friday and an evaluation from [facility] palliative [facility]. Referral has been sent. Pt's also provided with a list of private duty agencies for the home, info on [facility] as well as [facility] and a list of all the hospice/palliative agencies serving [facility]. No further CM needs noted at this time. Date Signed: 04/18/2018 02:47 PM Electronically Signed By:Tiffany Morales
--- NOTE | 2018-04-18 14:49 | ASDISCHSUM ---
Discharge Information Plan Status:Home with Home Health Medically Cleared to Leave:04/17/2018 Discharge Date:04/17/2018 CM D/C Disposition:Home Health Service ADT D/C Disposition:Home, Routine, Self-Care Projected Discharge Date:04/17/2018 Transportation at D/C:Family Discharge Delay Reason: Follow-Up Date:04/17/2018 Discharge Slot: Final Diagnosis: Placement Information Patient Contact Information Contact Name:RICARDO Relationship: Address:[address] [place] [address] City:[place] Alternate Phone: State/Zip Code:[place] [address] Email: Financial Information Financial Class:Medicare Advantage Plans Primary Plan Desc:[facility] [facility] [employer] PLANS Primary Plan Number:[id number] Secondary Plan Desc: Secondary Plan Number: Assessment Information LACE LACE Length of stay for Answers: 2 days current admission Acuity / Level of Answers: Yes Care: Did the patient have an inpatient admission? Comorbidities - select Answers: Dementia all that apply Opioid dependence / Chronic pain Other Notes: HTN; Hypothyroid; PE # of Emergency department Answers: 1-2 visits in the last 6 months Social determinants Answers: History of substance abuse (ETOH, street drugs, prescription drugs, etc.) Score: 17 Date Signed: 04/18/2018 01:06 PM Electronically Signed By:Tiffany Morales [facility] CM Progress Note CM Note CM Note Notes: Pt's chart reviewed for d/c planning. Pt is a 77 y/o female who initially came to the ED due to generalized weakness. She felt better while in the ED and was d/sarah and later went to a neurology appt to be evaluated for alzheimers. While in the waiting room there she had several episodes of generalized weakness and possibly near syncope. Paramendics came and found some PVCs and a borderline brachycardia; she was brought back to the ED. Pt has dementia and a hx of alcohol abuse. She lives with her and is retired. CM to follow. D/C Plan: TBD Date Signed: 04/17/2018 09:55 AM Electronically Signed By:Brittani Macias Case Management Discharge Plan Note Case Management Discharge Discharge Order Complete? Answers: Yes Patient to Obtain Answers: via Family Medications Transportation Arranged Answers: Family/Friends Transport will Pick (Date 04/18/2018 12:00 PM & Time) Faxed Final Orders Answers: Yes Agency/Facility Transfer Answers: Yes Report Printed & Faxed to Receiving Agency Family Notified Answers: Yes Notes: in the room Discharge Comments Notes: Pt to discharge home with and HC therapies starting Friday and an evaluation from [facility]. Referral has been sent. Pt's also provided with a list of private duty agencies for the home, info on [facility] as well as [facility] and a list of all the hospice/palliative agencies serving [facility]. No further CM needs noted at this time. Date Signed: 04/18/2018 02:47 PM Electronically Signed By:Tiffany Morales Intervention Information
== END 2018-04-18 15:09 | disposition home health service (06) | DRG 310 ==
LOC: EDUNIT# → SUPCPDRO 11:50 → F3E 14:33 → OBSVTOIN 04-17 16:17 → F3E 04-17 18:01
PROVIDERS: ADMIT Internal Medicine; ATTEND Internal Medicine
DX: I48.91 Unspecified atrial fibrillation (principal); I10 Essential (primary) hypertension; K21.9 Gastro-esophageal reflux disease without esophagitis; E03.9 Hypothyroidism, unspecified; F03.90 Unspecified dementia, unspecified severity, without behavioral disturbance, psychotic disturbance, mood disturbance, and anxiety; Z86.718 Personal history of other venous thrombosis and embolism; Z86.711 Personal history of pulmonary embolism
CPT/HCPCS: 84484-PO; 97116-GP; 97161-GP; 97165-GO; G0378; G8978-GP-CJ; G8979-GP-CI; G8987-GO-CJ; G8988-GO-CJ; G8989-GO-CJ; J1630; J1650; Q9967

== ENCOUNTER 2018-04-20 09:46 | Emergency (ER) | payer OTHER ==
--- NOTE | 2018-04-20 09:53 | EDPHY ---
H & P Time Seen by Provider: 04/20/18 09:46 Constitutional: Initial Vital Signs Temperature (C) 37.1 C 04/20/18 09:52 Heart Rate 67 04/20/18 09:52 Respiratory Rate 16 04/20/18 09:52 Blood Pressure 160/87 H 12 09:52 O2 Sat (%) 93 12 09:52 O2 Delivery Mode Room Air Allergies/Adverse Reactions: lanolin Allergy (Severe, Verified 04/20/18 09:52) Rash bacitracin Allergy (Verified 04/20/18 09:52) codeine [Codeine] Allergy (Verified 04/20/18 09:52) neomycin Allergy (Verified 04/20/18 09:52) polymyxin B Allergy (Verified 04/20/18 09:52) ADHESIVES Allergy (Uncoded 04/16/18 12:03) Home Medications: Medication Instructions Recorded Aspirin [Aspirin 81mg (*)] 81 mg PO DAILY 04/16/18 Herbals/Supplements -Info Only 1 ea PO DAILY 04/16/18 Levothyroxine [Synthroid 50 mcg 50 mcg PO DAILY06 04/16/18 (*)] Cholecalciferol Vit D3 [Vitamin D3 2,000 units PO DAILY 04/17/18 2000 units tab (OTC)] Cyanocobalamin [Vitamin B12 (*)] 500 mcg PO DAILY 04/17/18 [place]-3 Fatty Acids [Fish Oil 1000 1,000 mg PO DAILY 04/17/18 mg (*)] Medical Decision Making ED Course/Re-evaluation: CHIEF COMPLAINT: Failure to thrive HISTORY OF PRESENT ILLNESS: The patient is a 77 y/o female arriving via EMS from home requesting to speak with someone regarding her recent diagnosis of dementia. Her reported to EMS that she hasn't taken the news well and has not been eating or drinking much. She complains to him that she "can't do anything with her life any more." Her describes multiple "fainting" events where she will turn her head away during conversation and close her eyes and feign being asleep. She requested to come to the hospital today. She denies pain or any acute symptoms. Per recent admission notes, patient was admitted for a syncopal episode on 04/17/18, 3 days ago, and had a thorough evaluation. There was a long discussion with the patient's regarding palliative care for her dementia and the plan was for 24/ care at home and possibly day programs at a memory unit at the time of discharge on 04/18/18. REVIEW OF SYSTEMS: Unable to obtain due to dementia. PHYSICAL EXAM: HR, BP, O2 Sat, RR. Temp noted General Appearance: Alert, well hydrated, appropriate, and non-toxic appearing. Head: Atraumatic without scalp tenderness or obvious injury Eyes: Pupils equal, round, reactive to light and accommodation, EOMI, no trauma , no injection. Nose: Atraumatic, no rhinorrhea, clear. Throat: Mucus membranes moist. Neck: Supple, non-tender, no lymphadenopathy. Respiratory: No retractions, no distress, no wheezes, and no accessory muscle use. Lungs are clear to auscultation bilaterally. Cardiovascular: Regular rate and rhythm, no murmurs, rubs, or gallops. Good capillary refill all extremities. Gastrointestinal: Abdomen is soft, non-tender, non-distended, no masses, no rebound, no guarding, no peritoneal signs. Musculoskeletal: Normal active ROM of all extremities, atraumatic. Neurological: Alert, appropriate, and interactive. Nonfocal. Skin: No rashes, good turgor, no nodules on palpation. PAST MEDICAL HISTORY: Advanced dementia, history of alcohol abuse and opioid dependency, DVT, hypothyroidism, hypertension PAST SURGICAL HISTORY: Noncontributory SOCIAL HISTORY: . Lives in [place]. Retired. DIFFERENTIAL DIAGNOSIS: The differential diagnosis for the patient's depression included but was not limited to dementia, functional and major depression, situational depression, medication side effect, drugs, and alcohol abuse. MEDICAL DECISION MAKING: This is a 77 y/o female with advanced dementia who presents with failure to thrive at home. Exam is unremarkable. No acute medical issues identified and case management involved to help arrange home and outpatient resources. Patient will be discharged home with her with multiple resources in place. is comfortable with this plan. Departure - Departure Disposition: Home, Routine, Self-Care Clinical Impression: Failure to thrive in adult Dementia Qualifiers: Dementia type: unspecified type Dementia behavioral disturbance: without behavioral disturbance Qualified Code(s): F03.90 - Unspecified dementia without behavioral disturbance Condition: Good Instructions: Dementia (ED) Additional Instructions: Follow up with the resources discussed with the community case manager. Referrals: Tiffany Rg MD [Medical Doctor] - As per Instructions Report Scribed for: Tyler Luna Report Scribed by: Ying Ahumdaa Date of Report: 04/20/18 Time of Report: 11:13
[2018-04-20 11:42] VITALS: BP 173/97
--- NOTE | 2018-04-20 13:40 | ASMTCMCOM ---
CM Note CM Note Notes: Pt presented to the ED via EMS for possible syncopal event, FTT, and weakness. Pt was recently d/c'd from [facility] on 04/18 w/ [facility] PT/OT, [facility] and other non-skilled HC, adult day program resources, etc. Pt's Judd Gottlieb ([phone]) arrived to the ED and states that pt continues to have "fainting spells" but that she recovers to baseline after 10-15min. Judd states pt had a "fainting spell" this morning and her pupils constricted to a pinpoint but returned to normal size shortly after; per Judd, pt insisted on him calling 911 and being brought to the hospital. Judd states pt also had a "Fainting spell" while seated in a pickens at a restaurant yesterday. Judd states his daughter, Sharon Kinsey is a geriatric RN and was there at the time and assisted pt to a safe position. This CM called [facility] and spoke w/Rickey who said that they did not receive all of patient's information over the weekend so they have not been able to followup with the pt or Judd. Rickey states she will now reach out to Judd and discuss when to start PT/OT. Judd aware and expecting a call today. Referral sent via [employer] Spoke w/Lny at [facility] and she also states they did not receive any referral on this patient via [employer] or via traditional fax. Lyn states she will reach out to the pt and Judd. Referral sent via [employer] Judd states he had contacted [facility] and had an appt w/Judd Girard (c:[phone]) today at 10am but had to cancel due to pt cmg to the ED. Judd states he has set up non-skilled HC to come on MTW from 10a-2pm. Spoke kings[facility]udd [facility] and he says he will reach back out to Judd and the pt today to confirm that they will start services tomorrow. Judd states that pt will have 24/7 care provided by either him, his daughter Vivian Cheung who lives in [place], [facility], [facility], & [facility], etc. Judd states he is planning on calling fertilizer applicator Dr Beard's at [facility] ([phone]) today; this CM to call [facility] and request someone reach out and ensure pt gets an appt soon s she can be fitted for a Holter monitor. Judd will also call pt's neurologist Dr Caballero w/[facility] ([phone]) and reschedule this past 's appt; this CM to reach out to [facility] and request they reach out to pt and Judd to ensure rescheduling appt. Judd also states he has been in contact w/Anam[facility] MALAVE and has paid a deposit for their waitlist in case pt remaining at home w/HC turns out to be an unsafe option. This CM also to reach out to pt's PCP Dr Myra Fregoso at [facility] ([phone]) and the RN Care Coordinators Karey King ([phone]) or Myra Cruz ([phone]) to discuss followup and continued coordination of care. CM available for further assistance if needed. Date Signed: 04/20/2018 01:39 PM Electronically Signed By:Sapna Francisco RN
== END 2018-04-20 11:44 | disposition home or self-care (01) ==
LOC: EDUNIT#
DX: R62.51 Failure to thrive (child) (principal); F03.90 Unspecified dementia, unspecified severity, without behavioral disturbance, psychotic disturbance, mood disturbance, and anxiety; I10 Essential (primary) hypertension; E03.9 Hypothyroidism, unspecified; F10.10 Alcohol abuse, uncomplicated; F11.20 Opioid dependence, uncomplicated; Z86.718 Personal history of other venous thrombosis and embolism

== ENCOUNTER 2018-04-23 09:39 | Observation (INO) | payer OTHER ==
--- NOTE | 2018-04-23 10:01 | EDPHY ---
H & P Time Seen by Provider: 04/23/18 09:42 HPI/ROS: Chief complaint. Syncope HPI. 77-year-old feet male here by EMS after a syncopal episode. She has had 8 passing out episodes over the past week. She was admitted on April 16 for syncope. She had a negative PE study. She had some runs of atrial fibrillation and seen by cardiology but the etiology really was not found. Typically the patient will have a 5-10 minute episode of fatigue and decreased level of consciousness and tells her that she is going to pass out. Her says that normally after 20 or 30 min the episode is over. However today it lasted about 1 hr. She had some mild generalized tremors. He says she response slightly during the episodes. He placed and oximeter that can check blood pressure and pulse. Her blood pressure was stable. Her pulse was in the low 60s. A O2 saturation was 89-91%. Patient tells me she does not have chest pain she does have slight cough. No abdominal pain. She has a new bruise to the right anterior chest that the family is unaware how this occurred. No head injury and no injury from her passing out episode today. Patient began taking Zoloft yesterday and had 1 dose yesterday and 1 dose today ROS 10 systems were reviewed and negative with the exception of the elements mentioned in the history of present illness Past Medical/Surgical History: Dementia, hypertension, hypothyroid, previous pulmonary embolus, GERD, chronic pain with narcotic dependence, alcoholism Social History: , nonsmoker, no alcohol Smoking Status: Never smoked Physical Exam: General Appearance: Alert well-developed female mild distress vital signs are stable Eyes: Pupils equal and round no pallor or injection. ENT, Mouth: Mucous membranes are moist. Respiratory: There are no retractions, lungs are clear to auscultation. Cardiovascular: Regular rate and rhythm. Gastrointestinal: Abdomen is soft and nontender, no masses, bowel sounds normal. Neurological: Awake and alert, sensory and motor exams grossly normal. Skin: Warm and dry, no rashes. Musculoskeletal: Neck is supple nontender. Extremities symmetrical, full range of motion. Psychiatric: Patient is oriented X 3, there is no agitation. Constitutional: Initial Vital Signs Temperature (C) 36.6 C 04/23/18 09:47 Heart Rate 61 04/23/18 09:47 Respiratory Rate 18 04/23/18 09:47 Blood Pressure 163/85 H 04/23/18 09:47 O2 Sat (%) 92 04/23/18 09:47 O2 Delivery Mode Room Air Allergies/Adverse Reactions: lanolin Allergy (Severe, Verified 04/23/18 09:51) Rash bacitracin Allergy (Verified 04/23/18 09:51) codeine [Codeine] Allergy (Verified 04/23/18 09:51) neomycin Allergy (Verified 04/23/18 09:51) polymyxin B Allergy (Verified 04/23/18 09:51) ADHESIVES Allergy (Uncoded 04/16/18 12:03) Home Medications: Medication Instructions Recorded Aspirin [Aspirin 81mg (*)] 81 mg PO DAILY 04/16/18 Herbals/Supplements -Info Only 1 ea PO DAILY 04/16/18 Levothyroxine [Synthroid 50 mcg 50 mcg PO DAILY06 04/16/18 (*)] Cholecalciferol Vit D3 [Vitamin D3 2,000 units PO DAILY 04/17/18 2000 units tab (OTC)] Cyanocobalamin [Vitamin B12 (*)] 500 mcg PO DAILY 04/17/18 [place]-3 Fatty Acids [Fish Oil 1000 1,000 mg PO DAILY 04/17/18 mg (*)] Sertraline HCl [Zoloft 25mg (*)] 25 mg PO DAILY 04/23/18 Medical Decision Making - Diagnostics EKG Interpretation: EKG interpreted by me shows normal sinus rhythm normal interval and axis. QRS is normal there is no significant ST elevation or depression. T-wave inversion in V2 and V3 Imaging Results: One-view chest x-ray reviewed by me shows no pneumonia. Possible mild CHF Procedures: IV normal saline, monitor ED Course/Re-evaluation: Patient remains stable on re-evaluation. The p[atient, her and I discussed the evaluation and recommendation for admission. They expressed understanding and agreement. I consulted and discussed the case with hospitalist. She agrees to the admisssion. Differential Diagnosis: Recurrent syncope of unclear etiology. Consider medication, arrthythmia, acute coronary syndrome. - Data Points Laboratory Results: Laboratory Results 04/23/18 10:23 04/23/18 10:23 Medications Given: Aspirin (Aspirin) 81 mg PO DAILY NICK Stop: 10/21/18 08:59 Last Admin: 04/24/18 07:57 Dose: 81 mg Enoxaparin Sodium (Lovenox) 40 mg SC DAILY NICK Stop: 10/21/18 08:59 Last Admin: 04/24/18 07:56 Dose: 40 mg Sodium Chloride (Ns) 1,000 mls @ 100 mls/hr IV CONT NICK Stop: 10/20/18 15:29 Last Admin: 04/23/18 16:09 Dose: 1,000 mls Levothyroxine Sodium (Synthroid) 50 mcg PO DAILY06 NICK Stop: 10/21/18 05:59 Last Admin: 04/24/18 04:08 Dose: 50 mcg Sertraline HCl (Zoloft) 25 mg PO DAILY NICK Stop: 10/21/18 08:59 Last Admin: 04/24/18 07:57 Dose: 25 mg Vitamin B Complex (Vitamin B12) 500 mcg PO DAILY NICK Stop: 10/21/18 08:59 Last Admin: 04/24/18 07:58 Dose: 500 mcg Point of Care Test Results: Chemistry 04/23/18 10:31 POC Troponin I 0.00 ng/mL ng/mL (0.00-0.08) Departure - Departure Dis[facility]: [facility] Acute Clinical Impression: Syncope Qualifiers: Syncope type: unspecified Qualified Code(s): R55 - Syncope and collapse Condition: Fair
[2018-04-23 10:41] LABS: PLATELET COUNT 212 10^3/uL (150-400)
[2018-04-23] MEDS ORDERED: ONDANSETRON 4 MG/2 ML VIAL IVP PRN (15:19)
[2018-04-23] MEDS ORDERED: ACETAMINOPHEN 325 MG TAB PO PRN (15:19)
[2018-04-23] MEDS ORDERED: NS 1,000 ML IV SCH (15:30)
--- NOTE | 2018-04-23 16:08 | CPEKG ---
Test Reason : OPEN Blood Pressure : / mmHG Vent. Rate : 051 BPM Atrial Rate : 051 BPM P-R Int : 168 ms QRS Dur : 092 ms QT Int : 457 ms P-R-T Axes : 030 -06 022 degrees QTc Int : 421 ms Sinus rhythm Low voltage, extremity leads Confirmed by Zane Mendoza ([id number]) on 04/23/2018 4:07:43 PM Referred By: Confirmed By:Zane Mendoza
--- NOTE | 2018-04-23 16:24 | GHP ---
DATE OF ADMISSION: 04/23/2018 CHIEF COMPLAINT: Syncope. HISTORY: The patient is a 77-year-old female, who was just hospitalized here earlier this month for a workup of syncope. She was discharged on April 18. During that hospitalization, she had a nor mal echocardiogram with an ejection fraction of 64% and a CT angiogram of the chest that was negative for pulmonary embolus. She has also recently had a brain MRI that was unremarkable. She had a brie f run of AFib during that hospitalization, so there was concern of possible tachy-ying syndrome, alt dayday no bradycardia was noted throughout her observation period. Plan was for an outpatient 30-day Holter monitor, but it is unclear if that has been pursued. She now represents to the hospital after her called 911. Reportedly, she has passed out 8 ti mes in the last week. These episodes typically initiate with the patient feeling lightheaded for abo ut 10 minutes. There was no chest pain or shortness of breath. She then has a loss of consciousness for an unclear period of time. says the episode today was loss of consciousness for 1 hour prompting him to call 911. Since arrival to the floor, the patient has had multiple recurrent events, which have been witnessed by the nursing staff. The nurses describe that her head drops to the side, and her eyes are closed, but she remains responsive during the event and still follows commands. Telemetry was negative. Per Nursing, these episodes are very atypical and appear possibly volitional. PAST MEDICAL HISTORY: 1. Hypertension. 2. Dementia. 3. Atrial fibrillation. 4. DVT and pulmonary embolus. MEDICATIONS: Please see computer record for a full detailed list. ALLERGIES: Refer to [facility]. SOCIAL HISTORY: No smoking. No significant alcohol. She lives with her . REVIEW OF SYSTEMS: Complete review of systems obtained. Review of systems negative regarding consti tutional, HEENT, GI, pulmonary, cardiovascular, , hematology, , endocrine, psych except for positives under HPI. FAMILY HISTORY: Reviewed, noncontributory to presenting complaint. PHYSICAL EXAMINATION: GENERAL: Well-developed, well-nourished female in no acute distress. VITAL S IGNS: Temperature 36.9, pulse 56, blood pressure 163/85, satting 92% on room air. EYES: Normal con junctivae. Pupils equal, reactive to light. ENT: Normal ears, nose. Hearing intact. Normal teeth . Oropharynx moist. NECK: Trachea midline. No thyromegaly. CHEST: clear to auscultat ion bilaterally. CARDIOVASCULAR: Regular rate and rhythm. No murmur. No lower extremity edema. A BDOMEN: Soft, nontender. No hepatosplenomegaly. SKIN: Warm, dry, intact without rash. MUSCULOSKE LETAL: No cyanosis or clubbing. Strength 5/5 upper and lower extremities. NEURO: Cranial nerves i ntact. Normal sensation to light touch. PSYCH: She is alert and oriented x3. She knows it is Dece mber 2018, and Kiesha is shortly upon us, although she could not give me the exact date. She knew she was in [facility]. She is awake, alert, cooperative, a very poor historian. Po or judgment/insight into recent events. LABS: White count 8.95, hematocrit 40.2, platelets 212. Sodium 140, potassium 4.7, chloride 106, bi carb 26, BUN 20, creatinine 0.9, glucose 93. Troponin is negative. BNP is 215. Alcohol level is ne gative. EKG viewed by me: My personal interpretation is normal sinus rhythm, anterior T-wave invers ions. Chest x-ray is negative. Medical records reviewed. I summarized them above under HPI. ASSESSMENT/PLAN: 1. Recurrent syncope, very atypical in nature. She has had multiple events since arrival witnessed by nursing staff. Telemetry was negative through these events. There was some concern they may be p sychogenic. At this point, I do not have any further workup and will wait to see whether a physician may witness a future event. I doubt cardiac, and I doubt seizure activity. 2. Dementia. Per , she is at baseline. 3. Paroxysmal atrial fibrillation. We will watch on telemetry. I think she had only 1 episode that was extremely brief on her last hospitalization. Anticoagulation was not instituted due to her hist ory of falls. She is currently not on any rate-controlling agents. Need to clarify with the whether or not Holter monitor was ever pursued. CODE STATUS: Full. ADMISSION STATUS: Will admit to observation. Reevaluate tomorrow regarding ongoing need for hospita lization. DVT PROPHYLAXIS: She is high risk. We will place her on subcu Lovenox. /[id number]/MODL
[2018-04-24] MEDS ORDERED: LEVOTHYROXINE 50 MCG TAB PO SCH (06:00)
[2018-04-24 07:14] VITALS: BP 157/92
--- NOTE | 2018-04-24 08:24 | ASMTLACE ---
FLAKITOE Comorbidities - select Answers: Dementia all that apply Opioid dependence / Chronic pain Other Notes: HTN; Hypothyroid; DVT/P E # of Emergency department Answers: 3-4 visits in the last 6 months Social determinants Answers: History of substance abuse (ETOH, street drugs, prescription drugs, etc.) Score: 14 Date Signed: 04/24/2018 08:24 AM Electronically Signed By:Meenu Wan
[2018-04-24] MEDS ORDERED: ENOXAPARIN 40 MG/0.4 ML SYR SC SCH (09:00)
[2018-04-24] MEDS ORDERED: ASPIRIN 81 MG CHEWABLE TAB PO SCH (09:00)
[2018-04-24] MEDS ORDERED: SERTRALINE HCL 25 MG TAB PO SCH (09:00)
[2018-04-24] MEDS ORDERED: CYANO/VITAMIN B12 1000 MCG TAB PO SCH (09:00)
--- NOTE | 2018-04-24 12:22 | PDIAF ---
- Diagnosis Diagnosis: memory loss Code Status: Full Code - Medication Management Discharge Medications: electronically signed and located in the Home Medication List. - Orders Services needed: Home Care, Registered Nurse, Master Electronic Security Technician, Physical Therapy, Speech Language Pathologist Home Care Face to Face: I certify that this patient was under my care and that I had the required [id number] encounter meeting the encounter requirements on the discharge day. My findings support the fact that the patient is homebound as defined in Home Care Face to Face Continued: CMS Chapter 7 Medicare Benefits Manual 30.1.1 , The condition of the patient is such that there exists a normal inability to leave home and consequently, leaving home would require a considerable and taxing effort. Diet Recommendation: no restrictions on diet Additional Instructions: Follow up with Dr. Fregoso or [facility] for the 30 day cardiac event monitor and results. - Follow Up Care Current Providers and Referrals: Patient,NotPresent [Unknown] - As per Instructions Rafa Caballero PA [Physician Painter Hand] - Myra Fregoso MD [Primary Care Provider] -
--- NOTE | 2018-04-24 14:34 | ASMTCMCOM ---
CM Note CM Note Notes: 04/24/2018 Case Management Note Pt admitted for evaluation of syncopal episode. Multiple lengthy discussions with family members. Judd [phone] Daughter Kitty [phone] (h) [phone] (c) Step daughter Sharon [phone] Sharon is a geriatric RN with [employer] Both Kitty and Sharon indicated the home living situation would be considered a hoarding situation. Judd Girard from [facility] confirmed. Kitty and Sharon stated that pt should be in a Memory Care unit. Both are very supportive of family unit. Encouraged family meeting to discuss concerns with pt . Contacted Judd Estefanytiana with [facility] [phone]. [facility] providing unskilled care MTW from 02-11. Requested increased levels of support in the home for pt. Judd Shaji to contact pt . Judd has a down payment holding a spot at [facility]. [facility] accepted pt onto dementia program and will provide RN PT SLT and SW. Updated [facility]. [facility] to see pt next week. Provided info and referral to the [facility] drop in program. Judd to visit next week. Pt is over assets and income for [facility] program. Discussed all of the above with Judd. Judd stated he has [facility] care insurance. Requested Judd activate the policy to support Judd's wishes that pt remain in the home. Judd expresses fear and sadness at being apart from pt if pt were to live in a memory care center. Updated Karey King at Dr. Fregoso's office. Case Management d/c poc: Home with multiple layers of support. See above. Case Management to follow. Date Signed: 04/24/2018 02:33 PM Electronically Signed By:Gin Mccormick RN
--- NOTE | 2018-04-24 14:59 | ASDISCHSUM ---
Discharge Information Plan Status:Home with Home Health Medically Cleared to Leave:04/23/2018 Discharge Date:04/24/2018 02:47 PM D/C Disposition:Home Health Service ADT D/C Disposition:Home Health Service Projected Discharge Date:04/25/2018 11:00 AM Transportation at D/C:Family Discharge Delay Reason: Follow-Up Date:04/25/2018 11:00 AM Discharge Slot: Final Diagnosis: Placement Information Referral Type:Palliative Care Referral ID:-[id number] Provider Name:[facility] Address 1:[address] [place] [address] Phone Number: Address 2: Fax Number: [facility]:[place] Selection Factors: State:[place] Referral Type:*Home Health Care Services Referral ID:[id number] Provider Name:[facility] Address 1:[address] Address 2: City:[place] Selection Factors: State:[place] Referral Type:*Residential/SNF Referral ID:[id number] Provider Name: Address 1: Phone Number: Address 2: Fax Number: [facility]: [facility] Factors: State: Patient Contact Information Contact Name:RICARDO Relationship:Raine Address:[address] [place] [address] City:[facility] Phone: State/Zip Code:[place] [address] Email: Financial Information Financial Class:Medicare Advantage Plans Primary Plan Desc:[employer] Primary Plan Number:[id number] Secondary Plan Desc: Secondary Plan Number: Assessment Information LACE LACE Comorbidities - select Answers: Dementia all that apply Opioid dependence / Chronic pain Other Notes: HTN; Hypothyroid; DVT/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 Multiple lengthy discussions with family members. Judd [phone] Daughter Kitty [phone] (h) [phone] (c) Step daughter Sharon [phone] Sharon is a geriatric RN with [employer] Both Kitty and Sharon indicated the home living situation would be considered a hoarding situation. Judd Girard from [facility] confirmed. Kitty and Sharon stated that pt should be in a Memory Care unit. Both are very supportive of family unit. Encouraged family meeting to discuss concerns with pt . Contacted Judd Shaji with [facility] [phone]. [facility] providing unskilled care [facility] from -. Requested increased levels of support in the home for pt. Judd Girard to contact pt . Judd has a down payment holding a spot at [facility]. [facility] accepted pt onto dementia program and will provide RN PT SLT and SW. Updated Christiano Martel. Christiano to see pt next week. Provided info and referral to the [facility] drop in program. Judd to visit next week. Pt is over assets and income for [facility] program. Discussed all of the above with Judd. Judd stated he has alf care insurance. Requested Judd activate the policy to support Judd's wishes that pt remain in the home. Judd expresses fear and sadness at being apart from pt if pt were to live in a memory care center. Updated Karey King at Dr. Fregoso's office. Case Management d/c poc: Home with multiple layers of support. See above. Case Management to follow. Date Signed: 04/24/2018 02:33 PM Electronically Signed By:Gin Mccormick RN Case Management Discharge Plan Note Case Management Discharge Discharge Order Complete? Answers: Yes Patient to Obtain Answers: via Family Medications Transportation Arranged Answers: Family/Friends Case Management Transport Answers: Yes Form Complete Faxed Final Orders Answers: Yes Agency/Facility Transfer Answers: Yes Report Printed & Faxed to Receiving Agency Family Notified Answers: Yes Notes: in room Discharge Comments Notes: 04/24/2018 Case Management Note Faxed final orders to [facility] and [facility]. Discussed with [facility]. transported pt home. Date Signed: 04/24/2018 02:58 PM Electronically Signed By:Gin Mccormick RN Intervention Information
--- NOTE | 2018-04-24 15:18 | GDS ---
DISCHARGE DIAGNOSES: 1. Intermittent episodes of decreased responsiveness. 2. Dementia. 3. Paroxysmal atrial fibrillation. HISTORY: For details, please see history and physical dated April 23, 2018. In brief, the marjorie michael is a 77-year-old female with history of dementia, who presented to the emergency department with re ported syncope. She was recently discharged on April 18, at which time she had a workup for these events, including a normal echocardiogram, a CT angiogram of the chest that was negative for pulmonar y embolism, and also an unremarkable brain MRI. She did have a brief run of atrial fibrillation duri ng that hospitalization, and she is on aspirin for stroke prevention, with plans to do an outpatient cardiac event monitor. Given her recurrent symptoms, she was admitted to the hospital for further ma nagement. HOSPITAL COURSE: Patient was admitted to the cardiac telemetry unit. She did have several witnessed episodes of decreased responsiveness during this hospitalization. This is described as her announci ng that she is going to pass out, and then her head drops to the side. However, when nurses asked he r to please open her eyes, she will do so, and she answers questions and follows commands. It is als o noted by her that she will announce to her that in 10 minutes she is going to pass out. It is possible these are psychogenic in nature. She was seen by Neurology recently in clinic a nd started on Zoloft. There was no abnormal arrhythmia on cardiac telemetry here, though I do recomm end she follow up with outpatient cardiac event monitor as already planned. Case Management did cons ult. It turns out they are looking for placement at [facility]. It is also noted that she has significant hoarding issues. Resources were provided. Home health care services were order ed for RN, PT, social work and speech for ongoing cognitive evaluations. She should have close follo wup with her primary care provider, as well as Cardiology and Neurology. DISPOSITION: The patient is discharged home in stable condition. FOLLOWUP: 1. Dr. Myra Fregoso, primary care. 2. Rafa Caballero, Neurology. 3. Blayne Vivar, Cardiology, for outpatient cardiac event monitor results. DISCHARGE MEDICATIONS: Please see [facility] for completed outpatient medication list. There are no n ew medications on discharge, other than Tylenol p.r.n. She will continue her previous outpatient med ications, including Zoloft 25 mg p.o. daily. This may be increased after 2 weeks if she tolerates it okay. Levothyroxine 50 mcg p.o. daily, aspirin 81 mg p.o. daily, and outpatient vitamins as previou katie ordered. /[id number]/MODL
== END 2018-04-24 14:47 | disposition home health service (06) ==
LOC: EDUNIT# → INTOOBSV 11:43 → F2W 12:10
PROVIDERS: ADMIT Internal Medicine; ATTEND Hospitalist
DX: R46.4 Slowness and poor responsiveness (principal); R41.3 Other amnesia; F03.90 Unspecified dementia, unspecified severity, without behavioral disturbance, psychotic disturbance, mood disturbance, and anxiety; I48.0 Paroxysmal atrial fibrillation; I10 Essential (primary) hypertension; E03.9 Hypothyroidism, unspecified; F42.3 Hoarding disorder; K21.9 Gastro-esophageal reflux disease without esophagitis; G89.29 Other chronic pain; F11.20 Opioid dependence, uncomplicated; Z79.82 Long term (current) use of aspirin; Z86.718 Personal history of other venous thrombosis and embolism; Z86.711 Personal history of pulmonary embolism
CPT/HCPCS: 71045; 93005; 96372; 97116; 97161; 97166; 99285; G0378; G8978; G8979; G8987; G8988; J1650; 82607-90; 84484-PO; G0480

== ENCOUNTER 2018-05-03 16:49 | Emergency (ER) | payer OTHER ==
--- NOTE | 2018-05-03 17:10 | EDPHY ---
H & P Time Seen by Provider: 05/03/18 16:55 HPI/ROS: HPI Short of breath, lightheaded. 77-year-old female by private vehicle with her . This patient presents to the emergency department stating that she has felt short of breath, worse with exertion, worse with laying flat for a couple of days now. She reports that she has had associated episodes of lightheadedness which has been going on for about 3 weeks. She was admitted to the hospital for observation and further testing about 2 and half weeks ago and again for the same complaint seen in our emergency department and admitted about a week ago. She denies any associated chest pain, palpitations, loss of sensation or weakness in her extremities, shortness of breath, headache. As an outpatient, she has been managed by Dr. Beard of the cardiology service. She just received a outpatient event monitor in the mail yesterday. She is not set this up yet. On review of her previous medical history, during his admission with discharge on April 18, she had an unremarkable echocardiogram, CT angiogram of the chest and MRI of the brain. In the documentation, the nurses also noted that they witnessed several of the syncopal episodes. They described the patient as awake and alert with sudden slumping of her head to the side and although her eyes were closed she was conscious and following commands and answering questions. Urine drug screen on 04/16, negative, thyroid studies on 04/24 all unremarkable. Patient is also had an elevated D-dimer in the past. Negative CT angiogram in her chest from her 1st admission April 16. ROS: Constitutional: No fever, no chills. As above. Eyes: No discharge. No changes in vision. ENT: No sore throat. No nasal congestion or rhinorrhea. Respiratory: No cough. As above. Cardiac: No chest pain, no palpitations. Gastrointestinal: No abdominal pain, no vomiting, no diarrhea. Genitourinary: No hematuria. No dysuria or increased frequency with urination. Musculoskeletal: No back pain. No neck pain. No myalgias or arthralgias. Skin: No rashes. Neurological: No headache. No focal weakness or altered sensation. Past medical history: Dementia, hypertension, paroxysmal atrial fibrillation, hypothyroid, PE, GERD, chronic pain with narcotic dependence, alcohol abuse, right knee surgery, appendectomy, cataract surgery. Social history: She is here with her . She lives locally. Nonsmoker. As above. Physical Exam: General Appearance: Alert, flat affect, no distress. This patient is responding to questions appropriately and in full sentences. This patient appears well-hydrated and well-nourished. Eyes: Pupils equal and round no pallor or injection. No lid edema, erythema or injection. Respiratory: There are no retractions, lungs are clear to auscultation anteriorly with good air movement bilaterally. No tachypnea. Cardiovascular: Regular rate and rhythm. No murmur. Gastrointestinal: Abdomen is soft and nontender, no masses, bowel sounds normal. No focal tenderness at McBurney's point. No Nguyen sign. Neurological: Motor sensory function is grossly intact. Cranial nerves are normal. Gait is normal. Skin: Warm and dry, no rashes. Musculoskeletal: Neck is supple and nontender. Extremities are symmetrical. She has some trace pitting edema which is symmetrical in the bilateral lower extremities. All joints range without pain or impingement. Psychiatric: No agitation. As above. Database: EKG: EKG time is 5:07 p.m.; EKG shows a narrow complex normal sinus rhythm with a ventricular rate of 64. Low voltage noted in the extremity leads. The IL, QRS, QT intervals are within normal limits. There are no ST-T wave changes indicative of ischemic or injury pattern. No evidence of right heart strain. No significant changes from previous EKGs. Interpreted by me. Imaging: Chest x-ray AP portable; the cardiac mediastinal silhouette is unremarkable. No evidence of infiltrate or pneumothorax. No acute cardiopulmonary disease process noted. Interpreted by me. Procedures: Emergency department course: IV was placed. Triage vital signs reviewed. She is moderately hypertensive. Pulse oximetry 91% on room air. EKG obtained and reviewed by myself. 6:00 p.m., the patient was re-evaluated, resting comfortably at this time. Her vital signs were reviewed. She is moderately hypertensive. Vital signs are otherwise normal. She has no complaints at this time. No chest pain, no lightheadedness, no shortness of breath. Her regional intermodal truck driver shows a narrow complex sinus rhythm with ventricular rate of 75. I discussed results of her emergency department workup with both her and her . I did discuss admission for observation overnight. The patient does not want to be admitted. The patient has had extensive workups through her previous to admissions this month. They prefer to go home, get her regional intermodal truck driver set up they will follow up with her deck engine operator. I feel this is reasonable. Return to emergency department precautions were reviewed with her in detail. All of her questions were answered. The patient was discharged in good condition with her . Of note, I discussed with her his observation of the patient when she has these episodes. He describes these episodes similarly to have the nurses who witnessed the episodes did as dictated above. Differential Diagnosis: The differential diagnosis on this patient includes but is not limited to psychosomatic dysfunction. Acute coronary syndrome, congestive heart failure exacerbation, pulmonary embolism, CVA, pericardial effusion unlikely. This represents a partial list of diagnoses considered. These considerations are based on history, physical exam, past history, reassessment and diagnostic testing. Smoking Status: Never smoked Constitutional: Initial Vital Signs Temperature (C) 36.9 C 05/03/18 16:55 Heart Rate 65 05/03/18 16:55 Respiratory Rate 18 05/03/18 16:55 Blood Pressure 167/88 H 05/03/18 16:55 O2 Sat (%) 91 L 05/03/18 16:55 O2 Delivery Mode Room Air O2 (L/minute) 2 Allergies/Adverse Reactions: lanolin Allergy (Severe, Verified 05/03/18 16:55) Rash bacitracin Allergy (Verified 05/03/18 16:55) codeine [Codeine] Allergy (Verified 05/03/18 16:55) neomycin Allergy (Verified 05/03/18 16:55) polymyxin B Allergy (Verified 05/03/18 16:55) ADHESIVES Allergy (Uncoded 04/16/18 12:03) Home Medications: Medication Instructions Recorded Aspirin [Aspirin 81mg (*)] 81 mg PO DAILY 04/16/18 Herbals/Supplements -Info Only 1 ea PO DAILY 04/16/18 Levothyroxine [Synthroid 50 mcg 50 mcg PO DAILY06 04/16/18 (*)] Cholecalciferol Vit D3 [Vitamin D3 2,000 units PO DAILY 04/17/18 2000 units tab (OTC)] Cyanocobalamin [Vitamin B12 (*)] 500 mcg PO DAILY 04/17/18 [place]-3 Fatty Acids [Fish Oil 1000 1,000 mg PO DAILY 04/17/18 mg (*)] Sertraline HCl [Zoloft 25mg (*)] 25 mg PO DAILY 04/23/18 Acetaminophen [Tylenol 325mg (*)] 650 mg PO Q4 PRN tab 04/24/18 Medical Decision Making - Diagnostics Imaging Results: Imaging Impressions Chest X-Ray 05/03/18 16:56 Impression: Question mild bronchitis. Mild scarring or diskoid atelectasis left lung base. No other findings for acute cardiopulmonary abnormality. - Data Points Laboratory Results: Laboratory Results 05/03/18 17:10 05/03/18 17:10 05/03/18 05/03/18 05/03/18 17:14 17:10 17:10 WBC RBC Hgb Hct MCV MCH MCHC RDW Plt Count MPV Neut % (Auto) Lymph % (Auto) [place] % (Auto) Eos % (Auto) Baso % (Auto) Nucleat RBC Rel Count Absolute Neuts (auto) Absolute Lymphs (auto) Absolute Monos (auto) Absolute Eos (auto) Absolute Basos (auto) Absolute Nucleated RBC Immature Gran % Immature Gran # PT INR APTT D-Dimer Sodium 137 mEq/L mEq/L (135-145) Potassium 4.8 mEq/L mEq/L (3.5-5.2) Chloride 105 mEq/L mEq/L (97-110) Carbon Dioxide 25 mEq/l mEq/l (22-31) Anion Gap 7 mEq/L mEq/L (6-14) BUN 21 mg/dL mg/dL (7-23) Creatinine 0.9 mg/dL mg/dL (0.6-1.0) Estimated GFR > 60 Glucose 95 mg/dL mg/dL (70-100) Calcium 8.8 mg/dL mg/dL (8.5-10.4) POC Troponin I 0.01 ng/mL ng/mL (0.00-0.08) NT-Pro-B Natriuret Pep 207 pg/mL pg/mL (0-450) Specimen Hemolysis 131 Ethyl Alcohol < 10 mg/dL mg/dL (0-10) 05/03/18 05/03/18 17:10 17:10 WBC 9.18 10^3/uL 10^3/uL (3.80-9.50) RBC 4.13 10^6/uL L 10^6/uL (4.18-5.33) Hgb 12.0 g/dL L g/dL (12.6-16.3) Hct 37.8 % L % (38.0-47.0) MCV 91.5 fL fL (81.5-99.8) MCH 29.1 pg pg (27.9-34.1) MCHC 31.7 g/dL L g/dL (32.4-36.7) RDW 13.9 % % (11.5-15.2) Plt Count 254 10^3/uL 10^3/uL (150-400) MPV 8.7 fL fL (8.7-11.7) Neut % (Auto) 54.3 % % (39.3-74.2) Lymph % (Auto) 29.1 % % (15.0-45.0) [place] % (Auto) 13.1 % H % (4.5-13.0) Eos % (Auto) 2.5 % % (0.6-7.6) Baso % (Auto) 0.5 % % (0.3-1.7) Nucleat RBC Rel Count 0.0 % % (0.0-0.2) Absolute Neuts (auto) 4.98 10^3/uL 10^3/uL (1.70-6.50) Absolute Lymphs (auto) 2.67 10^3/uL 10^3/uL (1.00-3.00) Absolute Monos (auto) 1.20 10^3/uL H 10^3/uL (0.30-0.80) Absolute Eos (auto) 0.23 10^3/uL 10^3/uL (0.03-0.40) Absolute Basos (auto) 0.05 10^3/uL 10^3/uL (0.02-0.10) Absolute Nucleated RBC 0.00 10^3/uL 10^3/uL (0-0.01) Immature Gran % 0.5 % % (0.0-1.1) Immature Gran # 0.05 10^3/uL 10^3/uL (0.00-0.10) PT 12.9 SEC SEC (12.0-15.0) INR 0.95 (0.83-1.16) APTT 27.2 SEC SEC (23.0-38.0) D-Dimer 1.90 ug/mLFEU H ug/mLFEU (0.00-0.50) Sodium Potassium Chloride Carbon Dioxide Anion Gap BUN Creatinine Estimated GFR Glucose Calcium POC Troponin I NT-Pro-B Natriuret Pep Specimen Hemolysis Ethyl Alcohol Point of Care Test Results: Chemistry 05/03/18 17:14 POC Troponin I 0.01 ng/mL ng/mL (0.00-0.08) Departure - Departure Disposition: Home, Routine, Self-Care Clinical Impression: Near syncope, Transient dyspnea Condition: Good Instructions: Near Syncope (ED) Additional Instructions: Read and follow provided instructions. Follow-up with your primary care physician or deck engine operator on Friday, tomorrow if possible. If not after the . Follow-up as scheduled with Neurology this Friday. Take your medication as prescribed only. Set up regional intermodal truck driver as discussed when you get home. Return to the emergency department for chest pain, worsening shortness of breath , worsening symptoms or other serious concerns. Referrals: Myra Fregoso MD [Primary Care Provider] - As per Instructions Mahin Beard MD [Medical Doctor] - As per Instructions
[2018-05-03 17:26] LABS: PLATELET COUNT 254 10^3/uL (150-400)
[2018-05-03 17:33] LABS: INR 0.95 (0.83-1.16); PROTIME(PATIENT) 12.9 SEC (12.0-15.0)
[2018-05-03 18:24] VITALS: BP 175/85
--- NOTE | 2018-05-04 21:29 | CPEKG ---
Test Reason : OPEN Blood Pressure : / mmHG Vent. Rate : 064 BPM Atrial Rate : 064 BPM P-R Int : 149 ms QRS Dur : 090 ms QT Int : 398 ms P-R-T Axes : 032 -14 012 degrees QTc Int : 411 ms Sinus rhythm Low voltage, extremity leads Confirmed by Freddy Boudreaux ([id number] on 05/04/2018 9:28:54 PM Referred By: Confirmed By:Freddy Boudreaux
== END 2018-05-03 18:24 | disposition home or self-care (01) ==
DX: R55 Syncope and collapse (principal); R06.09 Other forms of dyspnea
CPT/HCPCS: 84484-ER; G0480

== ENCOUNTER 2018-05-04 04:31 | Observation (INO) | payer OTHER ==
[2018-05-04] MEDS ORDERED: NS 1,000 ML IV ONE (04:43)
--- NOTE | 2018-05-04 04:47 | EDPHY ---
H & P Time Seen by Provider: 05/04/18 04:43 HPI/ROS: HPI CHIEF COMPLAINT: Shortness of breath, global generalized weakness HISTORY OF PRESENT ILLNESS: Very pleasant 77-year-old female she has a history of dementia, presents emergency room by ambulance for generalized weakness and shortness of breath. EMS arrived and evaluated her they thought she may have a right facial droop and appeared weak so they called a stroke alert. She arrives to the emergency room where I did Greet her upon arrival her main complaint is shortness of breath and generalized weakness. Her neurological exam upon arrival is unremarkable no focal neuro deficit on exam. She does have baseline confusion consistent with her dementia and can't tell me the year but does not know who the president is. She reports to me that she woke up late this evening from sleep short of breath. She kept complained to her she was short of breath and so he contacted 911. Patient denies any chest pain to me. Denies headache, denies focal weakness. She does state that she feels globally weak. She denies vomiting or diarrhea. Upon arrival to the emergency room I do not appreciate a focal neuro deficit. Her did arrive shortly after the ambulance arrived does report that she has dementia. He also reports that they were just here yesterday in the emergency room for shortness of breath. Of note the patient is been recently seen here multiple times on April 16 time 2 times, April 20 of April 23 of May 03 She will also additionally had a prolonged hospitalization for syncope on April 23. At that time she had a negative brain MRI, negative CT angiogram of the chest and a normal echocardiogram. Past Medical History: Significant medical history for dementia, history of AFib in the hospital Past Surgical History: No recent surgery Social History: Lives in a private residence with . Family History: ROS REVIEW OF SYSTEMS: Limited due to patient's underlying dementia. Exam Constitutional demented, nontoxic, vital signs stable, triage nursing summary reviewed, vital signs reviewed, awake/alert. Eyes normal conjunctivae and sclera, EOMI, PERRLA. HENT normal inspection, atraumatic, moist mucus membranes, no epistaxis, neck supple/ no meningismus, no raccoon eyes. Respiratory clear to auscultation bilaterally, normal breath sounds, no respiratory distress, no wheezing. Cardiovascular chest wall ecchymosis appears to be old yellow. Mildly tender. No crepitus. rate normal, regular rhythm, no murmur, no edema, distal pulses normal. Gastrointestinal soft, non-tender, no rebound, no guarding, normal bowel sounds, no distension, no pulsatile mass. Genitourinary no CVA tenderness. Musculoskeletal no midline vertebral tenderness, full range of motion, no calf swelling, no tenderness of extremities, no meningismus, good pulses, neurovascularly intact. Skin pink, warm, & dry, no rash, skin atraumatic. Neurologic no focal neuro deficit on exam, no weakness, no facial droop alert and orient x1. moves all 4 extremities equally, motor intact, sensory intact, CN II-XII intact, normal cerebellar, normal vision, normal speech. Psychiatric normal mood/affect. Heme/Lymph/Immune no lymphadenopathy. Differential Diagnosis: Includes but is not limited to in a particular order underlying dementia, anxiety, panic attack, pneumonia, cardiac arrhythmia, ACS, CVA, intracranial bleed Medical Decision Making: Plan for this patient I did Greet her upon arrival she did go directly to CT tap a CT scan of her head without contrast, will obtain EKG, troponin basic blood work, gentle IV hydration, UA. I will also review her previous ER visits and hospitalization. Re-evaluation: CT scan head without contrast negative for acute stroke. Or bleed. Calcification left basal ganglia previously seen on MRI. 0455: I did reexamine the patient upon return from CT. I do not appreciate a focal acute neuro deficit. Given the CT scan results I will consult [facility]. Facial most likely need to be admitted. 4:55 a.m. I did go re-evaluate her she is resting comfortably she states that she feels better. However she has dementia. at bedside. He states this is mainly her baseline. When I asked the patient what happened " I guess I passed out" The patient's NIHSS stroke scale upon arrival 0. Additionally the patient is not a t-PA candidate and she woke up with shortness of breath, and woke up with these symptoms. 0503AM: Spoke with [facility] Dr. Keenan, discussed case in detail. He did not feel this patient is a tPA candidate. Woke up at 3:30 a.m. In the morning with the symptoms of shortness of breath and generalized weakness. Additionally her neurological exam is unremarkable here, except for baseline dementia. She moves everything appropriately for me. 0521AM: Have consult the hospitalist service Dr. Saldana For possible admission. He would like to talk to the at bedside, to clarify goals of care. 0522AM: Patient denies complaints at this time and states she feels fine. EKG interpretation by me on record in [email or web address] system. Impression time of EKG 5:15 a.m., sinus rhythm rate of 57, appreciate acute ischemia. Source: Patient, Family, EMS, Old records Exam Limitations: Clinical condition - Medical/Surgical History Hx Asthma: No Hx Chronic Respiratory Disease: No Hx Diabetes: No Hx Cardiac Disease: No Hx Renal Disease: No Hx Cirrhosis: No Hx Alcoholism: Yes Hx HIV/AIDS: No Hx Splenectomy or Spleen Trauma: No Other PMH: Dementia, HTN, HYPOTHYROID, PE, GERD, chronic pain with narcotic dependence, alcohol abuse. cataract surgery, retina surgery, appendectomy, ankle fusion, right knee surgery - Social History Smoking Status: Never smoked Constitutional: Initial Vital Signs O2 Sat (%) 93 05/04/18 04:36 O2 Delivery Mode Nasal Cannula O2 (L/minute) 2 Allergies/Adverse Reactions: lanolin Allergy (Severe, Verified 05/04/18 05:17) Rash bacitracin Allergy (Verified 05/04/18 05:17) codeine [Codeine] Allergy (Verified 05/04/18 05:17) neomycin Allergy (Verified 05/04/18 05:17) polymyxin B Allergy (Verified 05/04/18 05:17) ADHESIVES Allergy (Uncoded 05/04/18 05:17) Home Medications: Medication Instructions Recorded Aspirin [Aspirin 81mg (*)] 81 mg PO DAILY 04/16/18 [place]/Supplements -Info Only 1 ea PO DAILY 04/16/18 Levothyroxine [Synthroid 50 mcg 1 mcg PO DAILY06 04/16/18 (*)] Cholecalciferol Vit D3 [Vitamin D3 2,000 units PO DAILY 04/17/18 2000 units tab (OTC)] Cyanocobalamin [Vitamin B12 (*)] 500 mcg PO DAILY 04/17/18 [place]-3 Fatty Acids [Fish Oil 1000 1,000 mg PO DAILY 04/17/18 mg (*)] Sertraline HCl [Zoloft 25mg (*)] 25 mg PO DAILY 04/23/18 Acetaminophen [Tylenol 325mg (*)] 650 mg PO Q4 PRN tab 04/24/18 Medical Decision Making - Data Points Laboratory Results: Laboratory Results 05/04/18 04:30 05/04/18 04:30 Medications Given: Discontinued Medications Enoxaparin Sodium (Lovenox) 40 mg SC DAILY NICK Stop: 10/31/18 08:59 Last Admin: 05/04/18 09:16 Dose: 40 mg Sodium Chloride (Ns) 1,000 mls @ 0 mls/hr IV ONCE ONE PRN Reason: Wide Open Stop: 05/04/18 04:44 Last Admin: 05/04/18 05:07 Dose: 1,000 mls Point of Care Test Results: Chemistry 05/04/18 05/04/18 04:56 04:41 POC Sodium 141 mEq/L mEq/L (135-145) POC Potassium 4.6 mEq/L mEq/L (3.3-5.0) POC Chloride 105 mEq/L mEq/L (97-110) POC BUN 21 mg/dL mg/dL (7-23) POC Creatinine 0.9 mg/dL mg/dL (0.6-1.0) POC Glucose 92 mg/dL mg/dL (70-100) POC Troponin I 0.01 ng/mL ng/mL (0.00-0.08) ISTAT H&H 05/04/18 04:41 POC Hgb 13.9 gm/dL gm/dL (12.6-16.3) POC Hct 41 % % (38-47) Departure - Departure Disposition: [facility] Inpatient Acute Clinical Impression: Shortness of breath Condition: Fair
[2018-05-04 04:49] LABS: PLATELET COUNT 264 10^3/uL (150-400)
[2018-05-04 05:16] LABS: INR 0.94 (0.83-1.16); PROTIME(PATIENT) 12.8 SEC (12.0-15.0)
[2018-05-04] MEDS ORDERED: ONDANSETRON DISINTEGRATING 4 MG TAB PO PRN (05:46)
[2018-05-04] MEDS ORDERED: ONDANSETRON 4 MG/2 ML VIAL IVP PRN (05:46)
[2018-05-04] MEDS ORDERED: ACETAMINOPHEN 325 MG TAB PO PRN ×2 (05:46→14:28)
--- NOTE | 2018-05-04 06:00 | PDGENHP ---
History and Physical - Chief Complaint Shortness of breath - History of Present Illness 77 yo F w/ advanced dementia presents with complaints of shortness of breath. She has visited the hospital 6 times over the last month for several complaints. She was admitted twice for evaluation of possible syncope, although these were likely psychogenic in nature and no etiology was found despite thorough work-up including MRI. Each of the last 2 nights she has developed subjective dyspnea spells. Her brought her to the ED yesterday where she was discharged after a dyspnea spell after an unremarkable work-up. Today by the time of my evaluation she is symptom free. She does not recall the episode and tells me she feels well and wants to go home. Her work-up today has been unremarkable. Her tells me he had a pulse ox monitor on her at home during this last episode and her HR and O2 were within the normal range. She did have an episode of AF noted during a previous admission but he has not been able to [employer] the portable monitoring and evaluation advisor they were given. The patient is being admitted for observation as her and primary caregiver does not feel comfortable taking her home due to the frequency of her symptoms. Case discussed with ED physician Dr. Eller, records reviewed and summarized above. History Information - Allergies/Home Medication List Allergies/Adverse Reactions: lanolin Allergy (Severe, Verified 05/04/18 05:17) Rash bacitracin Allergy (Verified 05/04/18 05:17) codeine [Codeine] Allergy (Verified 05/04/18 05:17) neomycin Allergy (Verified 05/04/18 05:17) polymyxin B Allergy (Verified 05/04/18 05:17) ADHESIVES Allergy (Uncoded 05/04/18 05:17) Home Medications: RX: Aspirin [Aspirin 81mg (*)] 81 mg PO DAILY 04/16/18 [Last Taken 04/22/18] RX: Herbals/Supplements -Info Only 1 ea PO DAILY 04/16/18 [Last Taken 04/09/18] RX: Levothyroxine [Synthroid 50 mcg (*)] 50 mcg PO DAILY06 04/16/18 [Last Taken 04/23/18] RX: Cholecalciferol Vit D3 [Vitamin D3 2000 units tab (OTC)] 2,000 units PO DAILY 04/17/18 [Last Taken 04/22/18] RX: Cyanocobalamin [Vitamin B12 (*)] 500 mcg PO DAILY 04/17/18 [Last Taken 04/22] RX: [place]-3 Fatty Acids [Fish Oil 1000 mg (*)] 1,000 mg PO DAILY 04/17/18 [Last Taken 04/22/18] RX: Sertraline HCl [Zoloft 25mg (*)] 25 mg PO DAILY 04/23/18 [Last Taken ] I have personally reviewed and updated: family history, medical history - Past Medical History atrial fibrillation, dementia, DVT, GERD, hypertension, pulmonary embolism - Surgical History Reports: no pertinent surgical hx - Family History Positive for: non-pertinent - Social History Smoking Status: Never smoked Review of Systems Review of Systems: ROS: 10pt was reviewed & negative except for what was stated in HPI & below Physical Exam Physical Exam: Temp Pulse Resp BP Pulse Ox 36.8 C 59 L 18 137/71 H 97 05/04/18 05:47 05/04/18 05:47 05/04/18 05:47 05/04/18 05:47 05/04/18 05:47 Constitutional: no apparent distress, chronically ill appearing Eyes: PERRL, EOMI Ears, Nose, Mouth, Throat: moist mucous membranes, no oral mucosal ulcers Cardiovascular: regular rate and rhythym, no murmur, rub, or gallop Respiratory: no respiratory distress, clear to auscultation Gastrointestinal: normoactive bowel sounds, soft, non-tender abdomen Skin: warm, normal color Musculoskeletal: full muscle strength, no muscle tenderness Neurologic: CN II-XII Intact, other (A&Ox1) Psychiatric: interacting appropriately, poor insight, poor memory Lab Data & Imaging Review 05/04/18 04:30 05/04/18 04:30 WBC 9.52 10^3/uL (3.80-9.50) H 05/04/18 04:30 RBC 4.45 10^6/uL (4.18-5.33) 05/04/18 04:30 Hgb 12.9 g/dL (12.6-16.3) 05/04/18 04:30 POC Hgb 13.9 gm/dL (12.6-16.3) 05/04/18 04:41 Hct 41.1 % (38.0-47.0) 05/04/18 04:30 POC Hct 41 % (38-47) 05/04/18 04:41 MCV 92.4 fL (81.5-99.8) 05/04/18 04:30 MCH 29.0 pg (27.9-34.1) 05/04/18 04:30 MCHC 31.4 g/dL (32.4-36.7) L 05/04/18 04:30 RDW 13.9 % (11.5-15.2) 05/04/18 04:30 Plt Count 264 10^3/uL (150-400) 05/04/18 04:30 MPV 8.6 fL (8.7-11.7) L 05/04/18 04:30 Neut % (Auto) 59.6 % (39.3-74.2) 05/04/18 04:30 Lymph % (Auto) 27.2 % (15.0-45.0) 05/04/18 04:30 [place] % (Auto) 9.8 % (4.5-13.0) 05/04/18 04:30 Eos % (Auto) 2.3 % (0.6-7.6) 05/04/18 04:30 Baso % (Auto) 0.4 % (0.3-1.7) 05/04/18 04:30 Nucleat RBC Rel Count 0.0 % (0.0-0.2) 05/04/18 04:30 Absolute Neuts (auto) 5.67 10^3/uL (1.70-6.50) 05/04/18 04:30 Absolute Lymphs (auto) 2.59 10^3/uL (1.00-3.00) 05/04/18 04:30 Absolute Monos (auto) 0.93 10^3/uL (0.30-0.80) H 05/04/18 04:30 Absolute Eos (auto) 0.22 10^3/uL (0.03-0.40) 05/04/18 04:30 Absolute Basos (auto) 0.04 10^3/uL (0.02-0.10) 05/04/18 04:30 Absolute Nucleated RBC 0.00 10^3/uL (0-0.01) 05/04/18 04:30 Immature Gran % 0.7 % (0.0-1.1) 05/04/18 04:30 Immature Gran # 0.07 10^3/uL (0.00-0.10) 05/04/18 04:30 PT 12.8 SEC (12.0-15.0) 05/04/18 04:54 INR 0.94 (0.83-1.16) 05/04/18 04:54 APTT 24.6 SEC (23.0-38.0) 05/04/18 04:54 POC Sodium 141 mEq/L (135-145) 05/04/18 04:41 Sodium 138 mEq/L (135-145) 05/04/18 04:30 POC Potassium 4.6 mEq/L (3.3-5.0) 05/04/18 04:41 Potassium 4.9 mEq/L (3.5-5.2) 05/04/18 04:30 POC Chloride 105 mEq/L (97-110) 05/04/18 04:41 Chloride 107 mEq/L (97-110) 05/04/18 04:30 Carbon Dioxide 24 mEq/l (22-31) 05/04/18 04:30 Anion Gap 7 mEq/L (6-14) 05/04/18 04:30 POC BUN 21 mg/dL (7-23) 05/04/18 04:41 BUN 22 mg/dL (7-23) 05/04/18 04:30 Creatinine 0.9 mg/dL (0.6-1.0) 05/04/18 04:30 POC Creatinine 0.9 mg/dL (0.6-1.0) 05/04/18 04:41 Estimated GFR > 60 05/04/18 04:30 Glucose 92 mg/dL (70-100) 05/04/18 04:30 POC Glucose 92 mg/dL (70-100) 05/04/18 04:41 Calcium 9.3 mg/dL (8.5-10.4) 05/04/18 04:30 POC Troponin I 0.01 ng/mL (0.00-0.08) 05/04/18 04:56 Visualized and Interpreted Chest x-ray results: Yes Chest X-Ray results: no infiltrate Assessment & Plan Assessment: 77 yo F w/ advanced dementia presents with dyspnea. Plan: 1. Dyspnea - Present for 1-2 hours, resolved without intervention. I very much suspect this is related to advancing dementia and likely anxiety. Her noted normal HR and O2 sats on home pulse ox monitor during the event. Laboratory work-up and CXR (personally reviewed/interpreted) unremarkable on admission. - Admit for observation - Will monitor on telemetry to rule out arrhythmia as a contributing factor 2. Dementia - This is advanced and likely the cause of her multiple presentations. She has been seen at [facility] 6 times this month with multiple admission. Her has arranged home care and she has 24 hours supervision. He very much would like to keep her at home if possible. - PT/OT evaluations 3. AF - On ASA only as outpatient. Her has not been able to set up her monitoring and evaluation advisor at home yet and is seeking help with this. - Monitor on telemetry Diet - Regular Code - Full Ppx - LMWH Dispo - Admit under observation status
--- NOTE | 2018-05-04 06:28 | CPEKG ---
Test Reason : OPEN Blood Pressure : / mmHG Vent. Rate : 057 BPM Atrial Rate : 058 BPM P-R Int : 155 ms QRS Dur : 088 ms QT Int : 447 ms P-R-T Axes : 030 011 020 degrees QTc Int : 436 ms Sinus rhythm Low voltage, extremity leads Confirmed by Dinh Fuller ([id number] on 05/04/2018 6:27:34 AM Referred By: Confirmed By:Dinh Fuller
[2018-05-04] MEDS ORDERED: ENOXAPARIN 40 MG/0.4 ML SYR SC SCH (09:00)
[2018-05-04 11:33] VITALS: BP 152/74
--- NOTE | 2018-05-04 14:40 | HOSPPROG ---
Hospitalist Progress Note Assessment/Plan: 77 yo F admitted w dyspnea frequent presentations w same all negative workups on RA w clear exam home today see dc summary Subjective: states she is going home today. denies sob Objective: Vital Signs Temp Pulse Resp BP Pulse Ox 36.8 C 60 89 H 152/74 H 16 L 05/04/18 11:33 05/04/18 11:33 05/04/18 11:33 05/04/18 11:33 05/04/18 11:33 05/03/18 05/04/18 05/05/18 05:59 05:59 05:59 Intake Total 1000 Balance 1000 PT 12.8 SEC (12.0-15.0) 05/04/18 04:54 INR 0.94 (0.83-1.16) 05/04/18 04:54 - Physical Exam Constitutional: no apparent distress, appears nourished Eyes: PERRL, anicteric sclera Ears, Nose, Mouth, Throat: moist mucous membranes, hearing normal Cardiovascular: regular rate and rhythym, no murmur, rub, or gallop Respiratory: no respiratory distress, no rales or rhonchi Gastrointestinal: normoactive bowel sounds, soft, non-tender abdomen Genitourinary: no bladder fullness, No coburn in urethra Skin: warm, normal color Musculoskeletal: full muscle strength ICD10 Worksheet Patient Problems: Problems Problem Status Onset Shortness of breath Acute Pulmonary embolism Acute Syncope Acute
--- NOTE | 2018-05-04 14:54 | GDS ---
DISCHARGE DIAGNOSES: 1. Dyspnea. 2. Dementia. 3. Anxiety. The patient has had about 6 presentations this month for dyspnea that resolves upon presentation. Th is happened again last night. On each of these presentations in the past, she has had negative sherry ps including an MRI. She had a chest x-ray today. This is unremarkable without acute findings. She had an EKG showing sinus rhythm without ST or T-wave changes. She had a noncontrast head CT showing nothing acute identified. The patient was restarted on her home medicine. She was on room air with a normal lung exam. When I see her, she stated she was going home today. No medications were provided. She is discharged to [facility]. /[id number]/MODL
[2018-05-05] MEDS ORDERED: LEVOTHYROXINE 50 MCG TAB PO SCH (06:00)
[2018-05-05] MEDS ORDERED: SERTRALINE HCL 25 MG TAB PO SCH (09:00)
[2018-05-05] MEDS ORDERED: Herbals/Supplements -Info Only PO SCH (09:00)
[2018-05-05] MEDS ORDERED: ASPIRIN 81 MG CHEWABLE TAB PO SCH (09:00)
[2018-05-05] MEDS ORDERED: CYANO/VITAMIN B12 1000 MCG TAB PO SCH (09:00)
[2018-05-05] MEDS ORDERED: CHOLECALCIFEROL VIT D3 2,000 UNITS TAB/CAP PO SCH (09:00)
[2018-05-05] MEDS ORDERED: OMEGA-3 FATTY ACIDS 1,000 MG CAP PO SCH (09:00)
== END 2018-05-04 16:20 | disposition home or self-care (01) ==
LOC: EDUNIT# → F3N 07:47
PROVIDERS: ADMIT Student in an Organized Health Care Education/Training Program; ATTEND Student in an Organized Health Care Education/Training Program
DX: R06.09 Other forms of dyspnea (principal); F03.90 Unspecified dementia, unspecified severity, without behavioral disturbance, psychotic disturbance, mood disturbance, and anxiety; F41.9 Anxiety disorder, unspecified; G89.29 Other chronic pain; E03.9 Hypothyroidism, unspecified; K21.9 Gastro-esophageal reflux disease without esophagitis; F11.20 Opioid dependence, uncomplicated; Z86.711 Personal history of pulmonary embolism
CPT/HCPCS: 70450; 71045; 93005; 97165; G0378; G8987; G8988; G8989; J1650; 82435-PO; 82565-PO; 82947-PO; 84132-PO; 84295-PO; 84484-ER; 84520-PO; 85014-PO

== ENCOUNTER 2018-05-09 01:37 | Emergency (ER) | payer OTHER ==
[2018-05-09 01:45] VITALS: BP 138/85
--- NOTE | 2018-05-09 01:52 | EDPHY ---
H & P Stated Complaint: weakness Time Seen by Provider: 05/09/18 01:42 HPI/ROS: Chief Complaint: Weakness, difficulty breathing HPI: 77-year-old woman with a history of dementia coming in by EMS after an episode which she could not get up. This is her 6th visit to this emergency department this month. She has been seen here with episodes of shortness of breath and possible syncope. Workup has been extensive including an echocardiogram, MRI of the brain and a CT angiogram of the chest, all of which have been normal. On EMS arrival the patient complained that she was weak and could not walk. They were able to get her up and have her walk with assistance about 30 ft. The patient's bump complaining of some dyspnea. She currently has an event monitor in place. Who is being followed by Dr. Beard. She has been admitted to this hospital as recently as 4 days ago with negative evaluations at that time. Per prior documentation family has been looking at placement at the [facility]. Is also noted in previous hospitalizations that the patient would appear to have a syncopal event and some to the side with her eyes closed however when directed she would open her eyes and speak. She has also been announcing to her that she would be passing out in about 10 min. They have also documented previous hoarding behavior. She is currently complaining of not being able to walk. She does not know when this began. Denies any recent falls or injuries. She does have a contusion on her chest which is old from her prior presentation. ROS: 10 systems were reviewed and were negative except those elements noted in the HPI. Social History: No smoking, no alcohol, no recreational drug use Family History: non-contributory Physical Exam: Gen: Awake, Alert, No Distress HEENT: Nose: no rhinorrhea Eyes: PERRLA, EOMI Mouth: Moist mucosa Neck: Supple, no JVD Chest: nontender, lungs clear to auscultation, old-appearing right chest wall central contusion without step-offs or crepitus Heart: S1, S2 normal, no murmur Abd: Soft, non-tender, no guarding Back: no CVA tenderness, no midline tenderness Ext: no edema, non-tender Skin: no rash Neuro: CN II-XII intact, Sensation grossly intact, Strength 5/5 in bilateral upper and lower extremities - Personal History Current Tetanus/Diphtheria Vaccine: Unsure Current Tetanus Diphtheria and Acellular Pertussis (TDAP): Unsure - Medical/Surgical History Hx Asthma: No Hx Chronic Respiratory Disease: No Hx Diabetes: No Hx Cardiac Disease: No Hx Renal Disease: No Hx Cirrhosis: No Hx Alcoholism: Yes Hx HIV/AIDS: No Hx Splenectomy or Spleen Trauma: No Other PMH: Dementia, HTN, HYPOTHYROID, PE, GERD, chronic pain with narcotic dependence, alcohol abuse. cataract surgery, retina surgery, appendectomy, ankle fusion, right knee surgery - Social History Smoking Status: Never smoked Constitutional: Initial Vital Signs Temperature (C) 36.5 C 05/09/18 01:40 Heart Rate 61 05/09/18 01:40 Respiratory Rate 16 05/09/18 01:40 Blood Pressure 138/85 H 05/09/18 01:40 O2 Sat (%) 95 05/09/18 01:40 O2 Delivery Mode Room Air Allergies/Adverse Reactions: lanolin Allergy (Severe, Verified 05/09/18 01:45) Rash bacitracin Allergy (Verified 05/09/18 01:45) codeine [Codeine] Allergy (Verified 05/09/18 01:45) neomycin Allergy (Verified 05/09/18 01:45) polymyxin B Allergy (Verified 05/09/18 01:45) ADHESIVES Allergy (Uncoded 05/09/18 01:45) Home Medications: Medication Instructions Recorded Aspirin [Aspirin 81mg (*)] 81 mg PO DAILY 04/16/18 Herbals/Supplements -Info Only 1 ea PO DAILY 04/16/18 Levothyroxine [Synthroid 50 mcg 1 mcg PO DAILY06 04/16/18 (*)] Cholecalciferol Vit D3 [Vitamin D3 2,000 units PO DAILY 04/17/18 2000 units tab (OTC)] Cyanocobalamin [Vitamin B12 (*)] 500 mcg PO DAILY 04/17/18 [place]-3 Fatty Acids [Fish Oil 1000 1,000 mg PO DAILY 04/17/18 mg (*)] Sertraline HCl [Zoloft 25mg (*)] 25 mg PO DAILY 04/23/18 Acetaminophen [Tylenol 325mg (*)] 650 mg PO Q4 PRN tab 04/24/18 Medical Decision Making ED Course/Re-evaluation: Patient's symptoms have resolved and she is asking to go home. I have had a long conversation with her who is her primary director of finance. He is very frustrated with multiple episodes like this but he went EMS arrives that he is required to have her transferred to the hospital. Her primary care physician and neurologist have encouraged distraction to attempt to improve her symptoms of shortness of breath. I have encouraged him to discuss with the EMS providers to consider not transporting her if her symptoms improve while they are evaluating her. He is comfortable taking her home at this time. She has ambulated unassisted in the emergency department. There is no evidence of acute cardiac, respiratory or neurologic process at this time. been went - Data Points Laboratory Results: Laboratory Results 05/09/18 01:42 05/09/18 01:42 05/09/18 05/09/18 01:42 01:42 WBC 10.07 10^3/uL H 10^3/uL (3.80-9.50) RBC 4.42 10^6/uL 10^6/uL (4.18-5.33) Hgb 12.7 g/dL g/dL (12.6-16.3) Hct 39.9 % % (38.0-47.0) MCV 90.3 fL fL (81.5-99.8) MCH 28.7 pg pg (27.9-34.1) MCHC 31.8 g/dL L g/dL (32.4-36.7) RDW 14.1 % % (11.5-15.2) Plt Count 261 10^3/uL 10^3/uL (150-400) MPV 8.6 fL L fL (8.7-11.7) Neut % (Auto) 62.2 % % (39.3-74.2) Lymph % (Auto) 22.9 % % (15.0-45.0) Story % (Auto) 10.5 % % (4.5-13.0) Eos % (Auto) 3.3 % % (0.6-7.6) Baso % (Auto) 0.4 % % (0.3-1.7) Nucleat RBC Rel Count 0.0 % % (0.0-0.2) Absolute Neuts (auto) 6.26 10^3/uL 10^3/uL (1.70-6.50) Absolute Lymphs (auto) 2.31 10^3/uL 10^3/uL (1.00-3.00) Absolute Monos (auto) 1.06 10^3/uL H 10^3/uL (0.30-0.80) Absolute Eos (auto) 0.33 10^3/uL 10^3/uL (0.03-0.40) Absolute Basos (auto) 0.04 10^3/uL 10^3/uL (0.02-0.10) Absolute Nucleated RBC 0.00 10^3/uL 10^3/uL (0-0.01) Immature Gran % 0.7 % % (0.0-1.1) Immature Gran # 0.07 10^3/uL 10^3/uL (0.00-0.10) Sodium 139 mEq/L mEq/L (135-145) Potassium 4.8 mEq/L mEq/L (3.5-5.2) Chloride 105 mEq/L mEq/L (97-110) Carbon Dioxide 27 mEq/l mEq/l (22-31) Anion Gap 7 mEq/L mEq/L (6-14) BUN 25 mg/dL H mg/dL (7-23) Creatinine 1.0 mg/dL mg/dL (0.6-1.0) Estimated GFR 54 Glucose 95 mg/dL mg/dL (70-100) Calcium 9.2 mg/dL mg/dL (8.5-10.4) Departure - Departure Disposition: Home, Routine, Self-Care Clinical Impression: Shortness of breath Condition: Good Instructions: Shortness of Breath (ED) Additional Instructions: If this is episodes occur again in your unable to distractor, once EMS arrives please attempt to have them to onsite health coach her out of her symptoms. If there successful in doing so she does not necessarily require transport to the hospital. Certainly bring her to the emergency department for any concerns of her symptoms are not improving. Otherwise follow up with primary care physician in 2-3 days for further evaluation. Referrals: Myra Fregoso MD [Primary Care Provider] - As per Instructions
[2018-05-09 01:55] LABS: PLATELET COUNT 261 10^3/uL (150-400)
== END 2018-05-09 02:23 | disposition home or self-care (01) ==
LOC: EDUNIT#
DX: R06.02 Shortness of breath (principal); R53.1 Weakness; I10 Essential (primary) hypertension; K21.9 Gastro-esophageal reflux disease without esophagitis

== ENCOUNTER 2018-05-11 15:10 | Emergency (ER) | payer OTHER ==
--- NOTE | 2018-05-11 15:18 | EDPHY ---
H & P Time Seen by Provider: 05/11/18 15:15 HPI/ROS: CHIEF COMPLAINT: "Her pulse rate was getting above a 110" HISTORY OF PRESENT ILLNESS: The patient is a 77 y/o female with a history of dementia who has had several hospital visits this month and returns with her due to his concern above an elevated heart rate over the last hour. He says her heart rate kept fluctuating between 80s and 110 and she seemed upset and complained to him of difficulty breathing and feeling like she might pass out. He says she has never lost consciousness during these episodes. She continues to feel like she is having "a hard time taking a breath" during assessment. She denies chest pain. He called EMS at 02:00 this morning due to the same complaint and he reports her heart rate was between 80-90 at that time and they opted not to transport to the ED. He says her PCP ordered home O2 due to arrive this week to be used at night and when these episodes recur. History comes from patient's primarily due to her dementia. He primarily cares for her at home with help from home care 3x per week for 4- hour periods. He plans to get more home care soon based on what insurance will help pay for, but there is no specific timeline in place. REVIEW OF SYSTEMS: A ten system review of systems was performed and is negative with the exception of the items mentioned in the HPI. 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 PCP: Dr. Fregoso/ Dr. Carvajal. Home Care of [facility] 3x per week 4hrs/day. Regarding Advanced Directives - states, "we have those but I can't find them right now." "She wants to be resuscitated for 30 days and I'm medical power of document review attorney." "We were thinking about the life support things, I can't remember if we addressed those things [CPR] directly." General Appearance: Alert. Vital signs reviewed. SpO2 92%, HR 78. Eyes: Pupils equal and round, no conjunctival injection, no discharge. Anicteric. ENT, Mouth: Mucous membranes are moist, no oropharyngeal erythema or edema. Neck: No lymphadenopathy, supple. Respiratory: Lungs are clear to auscultation; no wheezes, rales, or rhonchi. Cardiovascular: Regular rate and rhythm; no murmur, rub, or gallop. Gastrointestinal: Abdomen is soft and nontender, no masses or organomegaly. Skin: Warm and dry, no rashes on exposed skin, normal color. Back: Nontender to palpation over the thoracolumbar spine. No CVAT. Extremities: No lower extremity edema, no calf tenderness or swelling. Neurological: Alert. Moving all four extremities easily and equally. Psychiatric: Normal affect. - Medical/Surgical History Hx Asthma: No Hx Chronic Respiratory Disease: No Hx Diabetes: No Hx Cardiac Disease: No Hx Renal Disease: No Hx Cirrhosis: No Hx Alcoholism: Yes Hx HIV/AIDS: No Hx Splenectomy or Spleen Trauma: No Other PMH: Dementia, HTN, HYPOTHYROID, PE, GERD, chronic pain with narcotic dependence, alcohol abuse. cataract surgery, retina surgery, appendectomy, ankle fusion, right knee surgery - Social History Smoking Status: Never smoked Constitutional: Initial Vital Signs Temperature (C) 37.4 C 05/11/18 15:18 Heart Rate 77 05/11/18 15:18 Respiratory Rate 16 05/11/18 15:18 Blood Pressure 166/73 H 05/11/18 15:18 O2 Sat (%) 94 05/11/18 15:18 O2 Delivery Mode Room Air O2 (L/minute) 2 Allergies/Adverse Reactions: lanolin Allergy (Severe, Verified 05/13/18 16:07) Rash bacitracin Allergy (Verified 05/13/18 16:07) codeine [Codeine] Allergy (Verified 05/13/18 16:07) neomycin Allergy (Verified 05/13/18 16:07) polymyxin B Allergy (Verified 05/13/18 16:07) ADHESIVES Allergy (Uncoded 05/11/18 15:22) Home Medications: Medication Instructions Recorded Aspirin [Aspirin 81mg (*)] 81 mg PO DAILY 04/16/18 Herbals/Supplements -Info Only 1 ea PO DAILY 04/16/18 Levothyroxine [Synthroid 50 mcg 1 mcg PO DAILY06 04/16/18 (*)] Cholecalciferol Vit D3 [Vitamin D3 2,000 units PO DAILY 04/17/18 2000 units tab (OTC)] Cyanocobalamin [Vitamin B12 (*)] 500 mcg PO DAILY 04/17/18 [place]-3 Fatty Acids [Fish Oil 1000 1,000 mg PO DAILY 04/17/18 mg (*)] Sertraline HCl [Zoloft 25mg (*)] 25 mg PO DAILY 04/23/18 Acetaminophen [Tylenol 325mg (*)] 650 mg PO Q4 PRN tab 04/24/18 Medical Decision Making ED Course/Re-evaluation: This is a 77 y/o female with dementia who presents via EMS for not completely clear reasons. Her states her HR was elevated so he called EMS. Her exam is nonfocal. Plan to involve case management. Patient has had a normal HR while in the ED. Case management spoke with patient's --various approaches in progress to help him care for his . See CM note. She is being discharged from ED in stable and unchanged condition. I have not identified an emergency medical condition and do not recommend additional ED work up. Differential Diagnosis: Shortness of breath including but not limited to anxiety, pulmonary infectious process, COPD, asthma, pulmonary embolus and congestive heart failure. Departure - Departure Disposition: Home, Routine, Self-Care Clinical Impression: Dyspnea Condition: Good Instructions: Shortness of Breath (ED) Additional Instructions: When she feels short of breath and is becoming anxious you might try putting the oxygen tubing in her nose as a placebo treatment. We have not found any concerning problems that would make her feel short of breath. Do not worry if her heart rate goes over 100 for short time period. Call Dr. Fregoso's office on Friday to check on the delivery of oxygen. Referrals: Myra Fregoso MD [Primary Care Provider] - As per Instructions Report Scribed for: Amanda Mane Report Scribed by: Ying Ahumada Date of Report: 05/11/18 Time of Report: 15:46 Physician Review and Approval Statement: 05/11/18 15:18 Portions of this note were transcribed by the medical record retrieval specialist. I, Dr. Amanda Mane, personally performed the history, physical exam, and medical decision- making; and confirmed the accuracy of the information in the transcribed note.
[2018-05-11 17:59] VITALS: BP 146/77
== END 2018-05-11 18:05 | disposition home or self-care (01) ==
LOC: EDUNIT#
DX: R06.00 Dyspnea, unspecified (principal); I10 Essential (primary) hypertension; F03.90 Unspecified dementia, unspecified severity, without behavioral disturbance, psychotic disturbance, mood disturbance, and anxiety; E03.9 Hypothyroidism, unspecified; G89.29 Other chronic pain; F11.20 Opioid dependence, uncomplicated; K21.9 Gastro-esophageal reflux disease without esophagitis

== ENCOUNTER 2018-05-13 15:59 | Emergency (ER) | payer OTHER ==
--- NOTE | 2018-05-13 17:22 | EDPHY ---
H & P Time Seen by Provider: 05/13/18 16:37 HPI/ROS: Chief complaint. Choking, shortness of breath HPI. Patient is a 77-year-old female with history of dementia and has been seen multiple times in the emergency department over the past several weeks. She has been seen for same complaints of difficulty breathing which then resolves. Today she had a episode of sense of difficulty breathing. Her said she told him she felt like she might pass out. She has been admitted for syncope. She is wearing a heart monitor. During the symptoms the checked her oxygen and pulse and these were normal. Yesterday she had a choking episode after eating some soup. Today she had a choking episode without any food. The choking episode is new but the previous symptoms of difficulty breathing and feeling like she might pass out have been present on previous visits. She was also upset with her and said she could not eat or urinate or defecate. Otherwise no fever, chest discomfort, abdominal pain ROS 10 systems were reviewed and negative with the exception of the elements mentioned in the history of present illness Past Medical/Surgical History: Past medical history dementia, hypertension, hypothyroid, PE, GERD, chronic pain with narcotic dependence and previous alcoholism. Cataract surgery, appendectomy Social History: , nonsmoker, no alcohol Smoking Status: Never smoked Physical Exam: General Appearance: Alert pleasant well-developed female no distress. Vital signs are stable Eyes: Pupils equal and round no pallor or injection. ENT, Mouth: Mucous membranes are moist. Patient speaks in a normal voice. There is no stridor. Swallowing secretions Respiratory: There are no retractions, lungs are clear to auscultation. Cardiovascular: Regular rate and rhythm. Gastrointestinal: Abdomen is soft and nontender, no masses, bowel sounds normal. Neurological: Awake and alert, sensory and motor exams grossly normal. Skin: Warm and dry, no rashes. Musculoskeletal: Neck is supple nontender. Extremities symmetrical, full range of motion. Psychiatric: Patient is oriented X 3, there is no agitation. Constitutional: Initial Vital Signs Temperature (C) 36.8 C 05/13/18 16:08 Heart Rate 81 05/13/18 16:08 Respiratory Rate 18 05/13/18 16:08 Blood Pressure 154/93 H 05/13/18 16:08 O2 Sat (%) 92 05/13/18 16:08 O2 Delivery Mode Room Air Allergies/Adverse Reactions: lanolin Allergy (Severe, Verified 05/13/18 16:07) Rash bacitracin Allergy (Verified 05/13/18 16:07) codeine [Codeine] Allergy (Verified 05/13/18 16:07) neomycin Allergy (Verified 05/13/18 16:07) polymyxin B Allergy (Verified 05/13/18 16:07) ADHESIVES Allergy (Uncoded 05/11/18 15:22) Home Medications: Medication Instructions Recorded Aspirin [Aspirin 81mg (*)] 81 mg PO DAILY 04/16/18 Herbals/Supplements -Info Only 1 ea PO DAILY 04/16/18 Levothyroxine [Synthroid 50 mcg 1 mcg PO DAILY06 04/16/18 (*)] Cholecalciferol Vit D3 [Vitamin D3 2,000 units PO DAILY 04/17/18 2000 units tab (OTC)] Cyanocobalamin [Vitamin B12 (*)] 500 mcg PO DAILY 04/17/18 [place]-3 Fatty Acids [Fish Oil 1000 1,000 mg PO DAILY 04/17/18 mg (*)] Sertraline HCl [Zoloft 25mg (*)] 25 mg PO DAILY 04/23/18 Acetaminophen [Tylenol 325mg (*)] 650 mg PO Q4 PRN tab 04/24/18 Medical Decision Making - Diagnostics Imaging Results: Imaging Impressions Chest X-Ray 05/13/18 17:12 Impression: Stable mild cardiomegaly. Stable mild interstitial prominence and peribronchial wall thickening, which is more likely chronic. Chest x-ray interpreted by me shows no evidence for pneumonia ED Course/Re-evaluation: Patient is drinking juice without difficulty . She is speaking without difficulty. Re-evaluation 630 pm--patient completely without symptoms. She asks if she can go home. She is speaking normally. She is breathing normally. She has been drinking juice. Her and I discussed imaging study results, treatment plan including criteria for return importance of follow-up and further evaluation. He expresses understanding and agreement Differential Diagnosis: Patient has dementia. They are trying medications for behavior control. She is having her Zoloft advanced and patient are in discussion with their PCP and Neurology for further mood control medication. There is no evidence of pneumonia or aspiration Departure - Departure Disposition: Home, Routine, Self-Care Clinical Impression: Altered mental status Qualifiers: Altered mental status type: transient alteration of awareness Qualified Code(s) : R40.4 - Transient alteration of awareness Condition: Good Instructions: Dementia (ED) Additional Instructions: Continue Zoloft. Return for worsening symptoms including difficulty breathing and choking. Call Dr. Fregoso tomorrow to discuss medication for mood control Referrals: Myra Fregoso MD [Primary Care Provider] - 1 day without fail
[2018-05-13 19:15] VITALS: BP 147/79
== END 2018-05-13 19:16 | disposition home or self-care (01) ==
DX: R40.4 Transient alteration of awareness (principal); R09.89 Other specified symptoms and signs involving the circulatory and respiratory systems; R06.02 Shortness of breath

== ENCOUNTER 2018-05-26 10:54 | Emergency (ER) | payer OTHER ==
--- NOTE | 2018-05-26 11:17 | EDPHY ---
HPI/HX/ROS/PE/MDM Narrative: CHIEF COMPLAINT: Possible SSRI overdose HISTORY OF PRESENT ILLNESS: The patient is a 77 y/o female with a history of dementia arriving via EMS for a possible SSRI overdose today (Zoloft). She has been seen multiple times in the emergency department over the past several weeks for a multitude of complaints. Per the patient's caregiver, the patient's was getting ready for work when "4 days worth of medications disappeared" including Zoloft. It is unknown what time the patient potentially took the medications. Initially the patient stated that she took all of them, but she later stated that she threw them away. The patient currently states that she took "some" of the medications, but not all of them. Currently her only complaint is stating that she is hungry. No fever, chills, chest pain, shortness of breath, palpitations, vomiting, diarrhea, urinary complaints, headache, lightheadedness. History was provided from the patient's caregiver. Patient's is not in the emergency department. Patient herself is not a reliable historian. REVIEW OF SYSTEMS: Per the caregiver, no recent fevers or chills, no vomiting, diarrhea, complaints of chest pain or shortness of breath. Patient herself has memory issues and is unable to provide review of systems. PAST MEDICAL HISTORY: Dementia, hypertension, hypothyroid, PE, GERD, chronic pain with narcotic dependence and previous alcoholism. Cataract surgery, appendectomy. SOCIAL HISTORY: , nonsmoker, lives in [place] VITAL SIGNS: Reviewed by me. Tells me she is hungry. Vital signs are stable. GENERAL: Well-developed, well-nourished, resting comfortably in no respiratory distress. HEENT: Atraumatic. Eyes: No icterus, no injection. Mouth: moist mucous membranes. No erythema or lesions. Neck: supple with no adenopathy. LUNGS: Clear to auscultation bilaterally, no wheezes, rhonchi or rales. CARDIAC: Heart monitor in place. Regular rate and rhythm, no rubs, murmurs or gallops. ABDOMEN: Soft, nontender, nondistended, bowel sounds normal. BACK: No CVA tenderness. EXTREMITIES: No trauma. No edema. Range of motion is normal throughout. NEURO: Alert but not oriented to person or date, grossly nonfocal. SKIN: Warm and dry, no rash. PSYCHIATRIC: Normal mentation, no agitation. Portions of this note were transcribed by a faculty i on call medical assistant. I personally performed a history, physical exam, medical decision making, and confirmed accuracy of information the transcribed note. ED Course: The patient is a 77 y/o female with a history of dementia arriving via EMS for a possible SSRI overdose today (Zoloft). Per the patient's there was 4 days worth of medications missing this morning and it is unsure if the patient took these medications or threw them away. Currently she is alert but not oriented to date. She also has an regular rhythm. EKG ordered; 500mL IV NS administered. 1149: 12-LEAD EKG: Please see the full report in [facility]. My interpretation: Sinus rhythm with a rate of 71. 1300: We have been unable to contact the patient's to determine the exact time that the patient took the medications. We will observe this patient for 6 hours. 1325: Patient's is in the emergency department. He can confirm that the patient took the pills at 09:30. The patient will need to be observed in the emergency department until 15:30 today. Patient remained stable throughout emergency department course. Repeat EKG demonstrates no QRS widening, no prolonged QT. Tylenol and acetaminophen are negative. Patient was discharged to home. Case management has been involved throughout the patient's emergency department course. The we do have some concerns regarding the number of times that the patient has been to the emergency department over the last several weeks. At this time, patient does have home health care on 4 days a week. Please see case management note for further information. MDM: Differential diagnoses for the patient's symptom complex was considered including but not limited to possible overdose, SSRI poisoning, polysubstance abuse, confusion, underlying dementia. - Data Points Laboratory Results: Laboratory Results 05/26/18 10:55 05/26/18 10:55 05/26/18 05/26/18 05/26/18 10:55 10:55 10:55 WBC 8.88 10^3/uL 10^3/uL (3.80-9.50) RBC 4.28 10^6/uL 10^6/uL (4.18-5.33) Hgb 12.4 g/dL L g/dL (12.6-16.3) Hct 38.6 % % (38.0-47.0) MCV 90.2 fL fL (81.5-99.8) MCH 29.0 pg pg (27.9-34.1) MCHC 32.1 g/dL L g/dL (32.4-36.7) RDW 14.1 % % (11.5-15.2) Plt Count 240 10^3/uL 10^3/uL (150-400) MPV 8.8 fL fL (8.7-11.7) Neut % (Auto) 66.2 % % (39.3-74.2) Lymph % (Auto) 20.7 % % (15.0-45.0) [place] % (Auto) 8.6 % % (4.5-13.0) Eos % (Auto) 3.4 % % (0.6-7.6) Baso % (Auto) 0.6 % % (0.3-1.7) Nucleat RBC Rel Count 0.0 % % (0.0-0.2) Absolute Neuts (auto) 5.89 10^3/uL 10^3/uL (1.70-6.50) Absolute Lymphs (auto) 1.84 10^3/uL 10^3/uL (1.00-3.00) Absolute Monos (auto) 0.76 10^3/uL 10^3/uL (0.30-0.80) Absolute Eos (auto) 0.30 10^3/uL 10^3/uL (0.03-0.40) Absolute Basos (auto) 0.05 10^3/uL 10^3/uL (0.02-0.10) Absolute Nucleated RBC 0.00 10^3/uL 10^3/uL (0-0.01) Immature Gran % 0.5 % % (0.0-1.1) Immature Gran # 0.04 10^3/uL 10^3/uL (0.00-0.10) Sodium 140 mEq/L mEq/L (135-145) Potassium 4.8 mEq/L mEq/L (3.5-5.2) Chloride 107 mEq/L mEq/L (97-110) Carbon Dioxide 25 mEq/l mEq/l (22-31) Anion Gap 8 mEq/L mEq/L (6-14) BUN 33 mg/dL H mg/dL (7-23) Creatinine 1.0 mg/dL mg/dL (0.6-1.0) Estimated GFR 54 Glucose 152 mg/dL H mg/dL (70-100) Calcium 8.9 mg/dL mg/dL (8.5-10.4) Total Bilirubin 0.6 mg/dL mg/dL (0.1-1.4) Conjugated Bilirubin 0.2 mg/dL mg/dL (0.0-0.5) Unconjugated Bilirubin 0.4 mg/dL mg/dL (0.0-1.1) AST 41 IU/L IU/L (14-46) ALT 28 IU/L IU/L (9-52) Alkaline Phosphatase 82 IU/L IU/L (38-126) Total Protein 7.2 g/dL g/dL (6.3-8.2) Albumin 4.0 g/dL g/dL (3.5-5.0) Lipase 434 IU/L H IU/L (23-300) Salicylates < 1.0 mg/dL L mg/dL (2.0-20.0) Acetaminophen < 10 mcg/mL L mcg/mL (10-30) Medications Given: Discontinued Medications Sodium Chloride (Ns) 500 mls @ 1,000 mls/hr IV EDNOW ONE PRN Reason: Protocol Stop: 05/26/18 11:57 Last Admin: 05/26/18 11:39 Dose: 500 mls General Time Seen by Provider: 05/26/18 11:13 Initial Vital Signs: Initial Vital Signs Temperature (C) 36.7 C 05/26/18 10:54 Heart Rate 69 05/26/18 10:54 Respiratory Rate 18 05/26/18 10:54 Blood Pressure 143/73 H 05/26/18 10:54 O2 Sat (%) 90 L 05/26/18 10:54 O2 Delivery Mode Nasal Cannula O2 (L/minute) 2 Allergies/Adverse Reactions: lanolin Allergy (Severe, Verified 05/26/18 11:02) Rash bacitracin Allergy (Verified 05/26/18 11:02) codeine [Codeine] Allergy (Verified 05/26/18 11:02) neomycin Allergy (Verified 05/26/18 11:02) polymyxin B Allergy (Verified 05/26/18 11:02) ADHESIVES Allergy (Uncoded 05/11/18 15:22) Home Medications: Medication Instructions Recorded Aspirin [Aspirin 81mg (*)] 81 mg PO DAILY 04/16/18 Herbals/Supplements -Info Only 1 ea PO DAILY 04/16/18 Levothyroxine [Synthroid 50 mcg 1 mcg PO DAILY06 04/16/18 (*)] Cholecalciferol Vit D3 [Vitamin D3 2,000 units PO DAILY 04/17/18 2000 units tab (OTC)] Cyanocobalamin [Vitamin B12 (*)] 500 mcg PO DAILY 04/17/18 Miles-3 Fatty Acids [Fish Oil 1000 1,000 mg PO DAILY 04/17/18 mg (*)] Sertraline HCl [Zoloft 25mg (*)] 25 mg PO DAILY 04/23/18 Acetaminophen [Tylenol 325mg (*)] 650 mg PO Q4 PRN tab 04/24/18 Departure - Departure Disposition: Home, Routine, Self-Care Clinical Impression: History of possible overdose Condition: Good Instructions: Adult Overdose (ED) Additional Instructions: Please be sure that her medications are managed by your or by visiting nurse. Please drink plenty of fluids and get plenty of rest. Referrals: Karey Flowers MD [Medical Doctor] - As per Instructions Report Scribed for: Ivonne Sweet Report Scribed by: Maria C Montoya Date of Report: 05/26/18 Time of Report: 11:17
[2018-05-26] MEDS ORDERED: NS 500 ML IV ONE (11:28)
[2018-05-26 11:50] LABS: PLATELET COUNT 240 10^3/uL (150-400)
--- NOTE | 2018-05-26 16:09 | CPEKG ---
Test Reason : OPEN Blood Pressure : / mmHG Vent. Rate : 071 BPM Atrial Rate : 070 BPM P-R Int : 177 ms QRS Dur : 087 ms QT Int : 393 ms P-R-T Axes : 058 -06 027 degrees QTc Int : 428 ms Sinus rhythm Low voltage, extremity leads NO long qt or prolongs qrs Confirmed by Ivonne Sweet ([id number]) on 05/26/2018 4:08:35 PM Referred By: Confirmed By:Ivonne Sweet
--- NOTE | 2018-05-26 16:11 | CPEKG ---
Test Reason : OPEN Blood Pressure : / mmHG Vent. Rate : 063 BPM Atrial Rate : 065 BPM P-R Int : 179 ms QRS Dur : 093 ms QT Int : 424 ms P-R-T Axes : 062 048 045 degrees QTc Int : 435 ms Sinus rhythm Atrial premature complex Low voltage, extremity leads Confirmed by Ivonne Sweet ([id number]) on 05/26/2018 4:10:47 PM Referred By: Confirmed By:Ivonne Sweet
[2018-05-26 16:57] VITALS: BP 143/73
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
[2018-05-29] MEDS ORDERED: MIDAZOLAM 2 MG/2 ML VIAL ONE (01:58)
== END 2018-05-26 16:57 | disposition home or self-care (01) ==
LOC: EDUNIT#
DX: T50.901A Poisoning by unspecified drugs, medicaments and biological substances, accidental (unintentional), initial encounter (principal)
CPT/HCPCS: G0480; J2250